=== PATIENT | female | born 1985 | race Caucasian/White ===

== ENCOUNTER 2021-02-24 03:41 | Emergency (ER) | payer MEDICARE, MEDICAID, SELFPAY ==
--- NOTE | 2021-02-24 04:11 | PC.NURSE ---
pt no longer in the waiting room. lwt
== END 2021-02-24 04:39 | disposition left against medical advice (07) ==
PROVIDERS: Emergency Provider Emergency Medicine
DX: M79.89 Other specified soft tissue disorders (principal)

== ENCOUNTER 2021-11-01 11:35 | Outpatient (REF) | payer MEDICARE, MEDICAID, SELFPAY ==
[2021-11-02 02:04] LABS: CT PCR NOT DETECTED (Not Detect.); NG PCR NOT DETECTED (Not Detect.)
[2021-11-02 09:10] LABS: BV Int Neg Control Negative (Negative); BV Int Pos Control Positive (Positive)
[2021-11-04 15:11] LABS: HPV mRNA E6/E7 rflx Not Detected (Not Detected)
== END 2021-11-01 11:36 | disposition home or self-care (01) ==
LOC: HO.LNP 11:35
PROVIDERS: Visit Provider Advanced Practice Midwife
DX: Z01.419 Encounter for gynecological examination (general) (routine) without abnormal findings (principal); Z11.51 Encounter for screening for human papillomavirus (HPV); Z20.2 Contact with and (suspected) exposure to infections with a predominantly sexual mode of transmission
CPT/HCPCS: 87480; 87491; 87510; 87591; 87624; 87660; 88142

== ENCOUNTER → 2022-01-15 09:25 | Outpatient (BNVA) | payer MEDICARE, MEDICAID, SELFPAY | PROVIDERS: Visit Provider Advanced Practice Midwife | DX: Z30.46 Encounter for surveillance of implantable subdermal contraceptive (principal) | CPT/HCPCS: 11982; 99212 ==

== ENCOUNTER 2022-05-02 09:19 | Emergency (ER) | payer MEDICARE, MEDICAID, SELFPAY ==
--- NOTE | ~2022-05-02 | US_ITS ---
EXAMINATION: US ABDOMEN LIMITED CLINICAL INFORMATION: Abdominal pain. COMPARISON: None TECHNIQUE: Real-time imaging of the right upper quadrant abdominal viscera. Color Doppler exam was used FINDINGS: PANCREAS: The head and body and portions of the tail the pancreas are visualized and are normal. LIVER: Normal. The liver is normal in size. The liver contour is normal. Parenchymal echogenicity is normal. No focal hepatic lesion. There is no intrahepatic biliary duct dilatation seen. GALLBLADDER: Normal. The gallbladder is physiologically distended without evidence of stones, sludge, polyps, wall thickening or pericholecystic fluid. COMMON BILE DUCT: Normal in caliber measuring 0.2 cm in diameter. RIGHT KIDNEY: Normal. No hydronephrosis. No renal calculi or focal parenchymal lesions. The kidney measures 9.6 cm in maximum dimension. FREE FLUID: None. US/US abdomen limited IMPRESSION: Normal ultrasound right upper quadrant.
[2022-05-02 09:31] VITALS: BP 125/75; PULSE 57; RESP 18; TEMP 36.7; O2SAT 98; BMI 30.2
[2022-05-02 09:56] LABS: MANUAL DIFF FLAG NO
[2022-05-02 10:00] LABS: Appearance Urine Cloudy; Basophils Absolute Auto 0.1 X10*3/uL (0.0-0.2); Color Urine Yellow; Eosinophils Absolute Auto 0.3 X10*3/uL (0.0-0.4); Eosinophils Percent Auto 5.1 % (0-4); Glucose Urine UA Negative (Negative); Imm Gran Abs Auto 0.01 X10*3/uL (0.00-0.03); Imm Gran Pct Auto 0.2 % (0.0-0.4); Leukocyte Esterase Urine Trace (Negative); Lymphocytes Absolute Auto 2.3 X10*3/uL (1.2-4.9); Lymphocytes Percent Auto 38.6 % (20-40); Mean Corpuscular HGB Conc 32.4 g/dl (31.0-35.0); Mean Corpuscular Volume 89.4 fL (80.0-98.0); Mean Platelet Volume 9.1 fL (9.4-12.3); Monocytes Absolute Auto 0.5 X10*3/uL (0.1-1.2); Monocytes Percent Auto 7.6 % (2-11); Neutrophils Absolute Auto 2.9 x10*3/uL (2.0-8.3); Neutrophils Percent Auto 47.5 % (45-73); Nitrite Urine Negative (Negative); Platelet Count 394 X10*3/uL (160-400); Red Blood Count 4.14 X10*6/uL (4.20-5.50); Red Cell Distribution Width 13.6 % (11.0-16.0); Specific Gravity - Urine >= 1.030 (1.005-1.025); UMIC TRIGGER UACC YES; Urine Blood Trace (Negative); Urine Ketones Negative (Negative); Urine Protein Trace mg/dL (Neg-Trace); White Blood Count 6.1 X10*3/uL (4.8-10.8)
[2022-05-02 10:01] LABS: UPreg QC Valid YES; Urine Pregnancy NEGATIVE (NEGATIVE)
[2022-05-02 10:02] LABS: Bacteria Urine 4+ (None Seen); Hyaline Casts Urine 0-2 /LPF (0-2); Squamous Epithelial Cell Urine >20 /HPF (0-2); UACC Culture Trigger YES
[2022-05-02 10:14] LABS: Anion Gap 10 (12-20); Blood Urea Nitrogen 14 mg/dL (9-16); Calcium 8.9 mg/dL (8.4-10.2); Carbon Dioxide 29 mmol/L (22-29); Chloride 105 mmol/L (96-108); Creatinine Clr Calc Pharmacy 107.4; Estimated Glomerular Filt Rate > 60; Glucose Random 107 mg/dL (60-115); Potassium 4.3 mmol/L (3.3-5.1); Sodium 140 mmol/L (135-145)
[2022-05-02 11:10] VITALS: BP 126/77; PULSE 66; RESP 16; TEMP 36.7; O2SAT 99
--- NOTE | 2022-05-02 12:29 | ECG_ITS ---
Test Reason : CP Blood Pressure : / mmHG Vent. Rate : 055 BPM Atrial Rate : 055 BPM P-R Int : 124 ms QRS Dur : 090 ms QT Int : 448 ms P-R-T Axes : 079 070 046 degrees QTc Int : 428 ms Sinus bradycardia Otherwise normal ECG No previous ECGs available Referred By: Jenny Gonzalez Electronically Signed By:TONY EATON
--- NOTE | 2022-05-02 12:31 | ED_ITS ---
HPI - Abdominal Pain General Chief Complaint: Abdominal Pain Stated Complaint: Upper abd pain Time Seen by Provider: 05/02/22 11:02 History of Present Illness HPI narrative: Patient is a 36-year-old female presents today with having abdominal pain. The abdominal pain is epigastric in nature. Ongoing for about 2 days. No fever no chills. No shortness of breath. No diaphoresis. No bloody stool. No dysuria. No flank pain. Patient from home. No coughing or congestion or upper r espiratory symptoms. Patient has no history of diabetes, hypertension, high cholesterol, smoking, mi. No vaginal discharge. Menstruation has been normal in timing and duration. Pain is not associated with change in position. Not associated with food. Not associated with chest pain. No history of abdominal surgery Related Data Home Medications Medication Instructions Recorded Confirmed etonogestrel 68 mg subdermal subdermal 11/01/21 01/15/22 implant (Nexplanon) levothyroxine 50 mcg tablet mcg PO DAILY 11/01/21 01/15/22 Previous Rx's Medication Instructions Recorded pantoprazole 40 mg tablet,delayed 40 mg PO DAILY #14 tabs 05/02/22 release (Protonix) Allergies Allergy/AdvReac Type Severity Reaction Status Date / Time shellfish derived Allergy Intermediate ANAPHYLAXIS Verified 01/15/22 09:56 [SHELLFISH DERIVED] Sulfa (Sulfonamide Allergy Unknown HIVES Verified 01/15/22 09:56 Antibiotics) [SULFA (SULFONAMIDE ANTIBIOTICS)] Review of Systems Review of Systems Positive epigastric pain Yes all other systems are reviewed and are negative PMFSH Past Medical History Attestation statement: The following information was validated with the patient. Medical History Hypothyroid Well woman exam with routine gynecological exam Surgical History Hx of appendectomy Family History Family History Paternal Grandmother Cancer Social History Social History Alcohol intake: current Patient Tobacco Use Status: Never used Tobacco Smoked in Last 30 Days: No Use of substances other than those prescribed or required for medical reasons: No Any prior treatment program specific to substance use: No Advance Directives: No Advance Directives Information Provided: Yes Patient : No Sexual orientation: Straight/Heterosexual Gender identity: Female Physical Exam ED Vital Signs: Vital Signs - 24 hr 05/02/22 09:31 05/02/22 11:10 05/02/22 14:40 Temperature 98.0 F 98.1 F 98.1 F Pulse Rate 57 66 62 Respiratory Rate 18 16 14 Blood Pressure 125/75 126/77 139/92 H Pulse Oximetry 98 99 99 Oxygen Delivery Method Room Air Room Air Room Air BMI result Body Mass Index 30.2 Appearance: Alert. Oriented X3. No acute distress. Eyes: Pupils equal, round and reactive to light. ENT: Pharynx normal. Neck: Normal inspection. Neck supple. No lymph nodes noted. No crepitus CVS: Normal heart rate and rhythm. Pulses normal. Normal S1 and S2 Respiratory: No respiratory distress. Breath sounds normal. No Wheezing. No rales Abdomen: Positive epigastric pain. No rebound or guarding Skin: Skin warm and dry. Normal skin color. Normal skin turgor. Extremities: No lower extremity edema. Neurovascular intact to all extremities. No Lacerations. No Rash Neuro: Oriented X 3. No motor deficit. No sensory deficit. Moving all exte rmities. No slurred speech Medical Decision Making Medical Decision Making [facility] Narrative: Positive epigastric pain. Patient biliary enzymes were normal. Ultrasound showed no evidence of biliary disease. Patient is in stable condition. Lipase is normal. There is no evidence for pancreatitis. test is negative. Not related issue. Patient's urine showed no signs of infection. She is in stable condition. Will start patient on PPI and discharge patient. Differential Diagnosis Gastritis, pancreatitis, biliary issue, obstruction Lab Data [facility] Lab Attestation statement: I reviewed the patient's lab results. 05/02/22 09:42 05/02/22 09:42 Labs: Lab Results 05/02/22 05/02/22 05/02/22 Range/Units 09:42 09:42 09:42 WBC 6.1 (4.8-10.8) X10*3/uL RBC 4.14 L (4.20-5.50) X10*6/uL Hgb 12.0 (12.0-16.0) g/dl Hct 37.0 (37.0-47.0) % MCV 89.4 (80.0-98.0) fL MCH 29.0 (27.0-33.0) pg MCHC 32.4 (31.0-35.0) g/dl RDW 13.6 (11.0-16.0) % Plt Count 394 (160-400) X10*3/uL MPV 9.1 L (9.4-12.3) fL Immature Gran % (Auto) 0.2 (0.0-0.4) % Neut % (Auto) 47.5 (45-73) % Lymph % (Auto) 38.6 (20-40) % [place] % (Auto) 7.6 (2-11) % Eos % (Auto) 5.1 H (0-4) % Baso % (Auto) 1.0 (0-2) % Lymph # (Auto) 2.3 (1.2-4.9) X10*3/uL [place] # (Auto) 0.5 (0.1-1.2) X10*3/uL Eos # (Auto) 0.3 (0.0-0.4) X10*3/uL Baso # (Auto) 0.1 (0.0-0.2) X10*3/uL Abs Immat Gran (auto) 0.01 (0.00-0.03) X10*3/uL Absolute Neuts (auto) 2.9 (2.0-8.3) x10*3/uL Absolute Nucleated RBC 0.000 (0.0-0.012) X10*3/uL Nucleated RBC % (auto) 0.0 (0.0-0.2) /100WBC Sodium 140 (135-145) mmol/L Potassium 4.3 (3.3-5.1) mmol/L Chloride 105 (96-108) mmol/L Carbon Dioxide 29 (22-29) mmol/L Anion Gap 10 L (12-20) BUN 14 (9-16) mg/dL Creatinine 0.74 (0.5-1.4) mg/dL Estim Creat Clear Calc 107.4 Estimated GFR > 60 Random Glucose 107 (60-115) mg/dL Calcium 8.9 (8.4-10.2) mg/dL Total Bilirubin 0.5 (0.0-1.0) mg/dL Direct Bilirubin 0.2 (0.0-0.5) mg/dL AST 12 (5-31) U/L ALT 9 (0-31) U/L Alkaline Phosphatase 53 (39-117) U/L Total Protein 6.8 (6.5-8.0) g/dL Albumin 4.2 (3.5-5.0) g/dL Lipase 18 (8-78) U/L Urine Color Yellow Urine Appearance Cloudy Urine pH 7.0 (5.0-9.0) Ur Specific [place] >= 1.030 H (1.005-1.025) Urine Protein Trace (Neg-Trace) mg/dL Urine Glucose (UA) Negative (Negative) mg/dL Urine Ketones Negative (Negative) mg/dL Urine Blood Trace H (Negative) Urine Nitrite Negative (Negative) Ur Leukocyte Esterase Trace H (Negative) Urine RBC 6-10 H (0-2) /HPF Urine WBC 6-10 H (0-5) /HPF Ur Squamous Epith Cells >20 (0-2) /HPF Urine Bacteria 4+ (None Seen) Hyaline Casts 0-2 (0-2) /LPF Urine Test (NEGATIVE) 05/02/22 Range/Units 09:42 WBC (4.8-10.8) X10*3/uL RBC (4.20-5.50) X10*6/uL Hgb (12.0-16.0) g/dl Hct (37.0-47.0) % MCV (80.0-98.0) fL MCH (27.0-33.0) pg MCHC (31.0-35.0) g/dl RDW (11.0-16.0) % Plt Count (160-400) X10*3/uL MPV (9.4-12.3) fL Immature Gran % (Auto) (0.0-0.4) % Neut % (Auto) (45-73) % Lymph % (Auto) (20-40) % [place] % (Auto) (2-11) % Eos % (Auto) (0-4) % Baso % (Auto) (0-2) % Lymph # (Auto) (1.2-4.9) X10*3/uL [place] # (Auto) (0.1-1.2) X10*3/uL Eos # (Auto) (0.0-0.4) X10*3/uL Baso # (Auto) (0.0-0.2) X10*3/uL Abs Immat Gran (auto) (0.00-0.03) X10*3/uL Absolute Neuts (auto) (2.0-8.3) x10*3/uL Absolute Nucleated RBC (0.0-0.012) X10*3/uL Nucleated RBC % (auto) (0.0-0.2) /100WBC Sodium (135-145) mmol/L Potassium (3.3-5.1) mmol/L Chloride (96-108) mmol/L Carbon Dioxide (22-29) mmol/L Anion Gap (12-20) BUN (9-16) mg/dL Creatinine (0.5-1.4) mg/dL Estim Creat Clear Calc Estimated GFR Random Glucose (60-115) mg/dL Calcium (8.4-10.2) mg/dL Total Bilirubin (0.0-1.0) mg/dL Direct Bilirubin (0.0-0.5) mg/dL AST (5-31) U/L ALT (0-31) U/L Alkaline Phosphatase (39-117) U/L Total Protein (6.5-8.0) g/dL Albumin (3.5-5.0) g/dL Lipase (8-78) U/L Urine Color Urine Appearance Urine pH (5.0-9.0) Ur Specific [place] (1.005-1.025) Urine Protein (Neg-Trace) mg/dL Urine Glucose (UA) (Negative) mg/dL Urine Ketones (Negative) mg/dL Urine Blood (Negative) Urine Nitrite (Negative) Ur Leukocyte Esterase (Negative) Urine RBC (0-2) /HPF Urine WBC (0-5) /HPF Ur Squamous Epith Cells (0-2) /HPF Urine Bacteria (None Seen) Hyaline Casts (0-2) /LPF Urine Test NEGATIVE (NEGATIVE) Medications Administered Discontinued Medications Generic Name Dose Route Start Last Admin Trade Name Freq PRN Reason Stop Dose Admin Al Hydroxide/Mg Hydroxide 30 ml 05/02/22 12:30 05/02/22 13:12 Magnesium Hydrox/Alum Hydrox 30 Ml Oral.Susp PO 05/02/22 12:31 30 ml ONCE ONE Administration Belladonna Alkaloids/Phenobarbital 10 ml 05/02/22 12:30 05/02/22 13:12 Phenobarb/Hyoscy/Atropine/Scop 10 Ml Elixir PO 05/02/22 12:31 10 ml ONCE ONE Administration Lidocaine HCl 15 ml 05/02/22 12:30 05/02/22 13:12 Lidocaine Hcl Viscous 2 % 15 Ml Solution MUCOUS MEM 05/02/22 12:31 15 ml ONCE ONE Administration Discharge Plan Discharge Clinical Impression: Gastritis Patient Disposition: Home, Self-Care Instructions: Gastritis (ED) Prescriptions: New pantoprazole [Protonix] 40 mg tablet,delayed release (DR/EC) 40 mg PO DAILY Qty: 14 0RF No Action levothyroxine 50 mcg tablet PO DAILY Nexplanon 68 mg implant subdermal Referrals: Physician,Unknown J [Primary Care Provider] -
[2022-05-02 12:32] LABS: Alanine Aminotransferase 9 U/L (0-31); Albumin Level 4.2 g/dL (3.5-5.0); Alkaline Phosphatase 53 U/L (39-117); Aspartate Amino Transferase 12 U/L (5-31); Bilirubin Direct 0.2 mg/dL (0.0-0.5); Bilirubin Total 0.5 mg/dL (0.0-1.0); Lipase 18 U/L (8-78); Total Protein 6.8 g/dL (6.5-8.0)
[2022-05-02] MEDS: Magnesium Hydrox/Alum Hydrox 30 ML ORAL.SUSP PO (13:12)
[2022-05-02] MEDS: Lidocaine HCl Viscous 2 % 15 ML SOLUTION MUCOUS MEM (13:12)
[2022-05-02] MEDS: PHENobarb/Hyoscy/Atropine/Scop 10 ML ELIXIR PO (13:12)
[2022-05-02 14:40] VITALS: BP 139/92; PULSE 62; RESP 14; TEMP 36.7; O2SAT 99
--- NOTE | 2022-05-02 15:32 | PC.NURSE ---
assumed care of pt at 1600, pt frustrated with wait on radiology report, feels hungry and dehydrated, per provider unable to give anything PO at this time, provider to go talk to pt.
--- NOTE | 2022-05-02 16:17 | MHC.EDTECH ---
this pct attempted to take vitals on patient, patient states they have been here for hours and is ready to leave and doesnt want any further treatments.
== END 2022-05-02 16:31 | disposition home or self-care (01) ==
PROVIDERS: Emergency Provider Emergency Medicine Emergency Medical Services
DX: K29.70 Gastritis, unspecified, without bleeding (principal); R10.13 Epigastric pain
CPT/HCPCS: 36415; 76705; 80048; 80076; 81001; 81003; 81025; 83690; 85025; 87086; 87147; 93005; 99284; 99285

== ENCOUNTER 2022-09-09 04:18 | Day surgery (SDC) | payer OTHER, SELFPAY ==
[2022-09-09] VITALS (9 sets, daily range): BP systolic 116–139; BP diastolic 66–91; PULSE 54–96; RESP 14–18; TEMP 36.1–37.3; O2SAT 97–100; BMI 31.8
--- NOTE | ~2022-09-09 | US_ITS ---
EXAMINATION: US PELVIC AND TRANSVAGINAL CLINICAL INFORMATION: Vaginal bleeding following misoprostol. COMPARISON: None available. TECHNIQUE: Ultrasound of the pelvis is performed using both transabdominal and transvaginal transducers along with Doppler. Transvaginal imaging is performed due to inadequate visualization transabdominally. FINDINGS: Uterus: The uterus is anteverted and measures 8.6 x 4.7 x 5.4 cm. The endometrium is heterogeneous measuring 2.7 cm in width with a small amount of fluid and increased Doppler detectable vascular flow. Findings could indicate retained product of conception. The uterus is smooth in contour and has normal myometrial echogenicity. No visible fibroid. Adnexa: Both ovaries are visualized. There is normal color flow to the adnexa. There is no ovarian torsion. Trace right adnexal free fluid. Complex right adnexal cyst measuring 4.2 x 3.6 x 3.4 cm with lacy internal echoes, consistent with a hemorrhagic cyst. Right ovary measures 4.6 x 3.9 x 3.9 cm. Right ovarian volume of 36.6 mL. Left ovary measures 2.4 x 1.8 x 1.6 cm. Left ovarian volume of 3.6 mL. Mild prominence of the vascular structures adjacent to the left adnexa which could indicate vascular congestion. US/US pelvic and transvaginal IMPRESSION: 1. Heterogeneous, thickened endometrium with increased Doppler detectable vascular flow. Findings could indicate retained product of conception. 2. Complex right ovarian cyst measuring 4.2 cm with lacy internal echoes, consistent with a hemorrhagic cyst. 3. Trace right adnexal free fluid. 4. Mild prominence of the vascular structures adjacent to the left adnexa which could indicate vascular congestion.
[2022-09-09 05:20] LABS: Basophils Absolute Auto 0.1 X10*3/uL (0.0-0.2); Basophils Percent Auto 0.6 % (0-2); Eosinophils Absolute Auto 0.1 X10*3/uL (0.0-0.4); Eosinophils Percent Auto 1.3 % (0-4); Hemoglobin 12.7 g/dl (12.0-16.0); Imm Gran Abs Auto 0.02 X10*3/uL (0.00-0.03); Imm Gran Pct Auto 0.2 % (0.0-0.4); Lymphocytes Absolute Auto 2.4 X10*3/uL (1.2-4.9); Lymphocytes Percent Auto 26.6 % (20-40); MANUAL DIFF FLAG NO; Mean Corpuscular HGB Conc 31.8 g/dl (31.0-35.0); Mean Corpuscular Hemoglobin 28.4 pg (27.0-33.0); Mean Corpuscular Volume 89.5 fL (80.0-98.0); Mean Platelet Volume 8.5 fL (9.4-12.3); Monocytes Absolute Auto 0.8 X10*3/uL (0.1-1.2); Monocytes Percent Auto 8.4 % (2-11); Neutrophils Absolute Auto 5.6 x10*3/uL (2.0-8.3); Neutrophils Percent Auto 62.9 % (45-73); Platelet Count 326 X10*3/uL (160-400); Red Blood Count 4.47 X10*6/uL (4.20-5.50); Red Cell Distribution Width 14.1 % (11.0-16.0); White Blood Count 8.9 X10*3/uL (4.8-10.8)
[2022-09-09 05:27] LABS: Prothrombin Time 11.3 SEC (10.0-13.1)
--- NOTE | 2022-09-09 05:32 | ED.FEMALEGU ---
HPI - Female Genitourinary General Chief complaint: Abdominal Pain Stated complaint: abd pain misscarriage month ago Time Seen by Provider: 09/09/22 05:22 Source: patient Mode of arrival: ambulatory Limitations: no limitations History of Present Illness HPI Narrative: Patient comes to the emergency room complaining of heavy vaginal bleeding. Patient states that she is a A2. On 08/01/2022, patient had spontaneous miscarriage. Patient was given misoprostol. Patient states that she did have some vaginal bleeding. Went to see her OB Gyne, patient still had remaining products of conception, patient was given a 2nd dose of misoprostol. Patient states that this 2nd time she did not bleed as much, this occurred approximately a week ago. However, she did not bleed much for 5 days and then 2 days ago patient started bleeding heavily. Patient states that she is using a pad every 2 hours for heavy vaginal bleeding. Patient denies any significant abdominal pain, occasional abdominal cramping. No fever chills, no UTI symptoms. Related Data Home Medications Medication Instructions Recorded Confirmed etonogestrel 68 mg subdermal subdermal 11/01/21 01/15/22 implant (Nexplanon) levothyroxine 50 mcg tablet mcg PO DAILY 11/01/21 01/15/22 Previous Rx's Medication Instructions Recorded pantoprazole 40 mg tablet,delayed 40 mg PO DAILY #14 tabs 05/02/22 release (Protonix) Allergies Allergy/AdvReac Type Severity Reaction Status Date / Time shellfish derived Allergy Intermediate ANAPHYLAXIS Verified 09/09/22 04:29 [SHELLFISH DERIVED] Sulfa (Sulfonamide Allergy Unknown HIVES Verified 09/09/22 04:29 Antibiotics) [SULFA (SULFONAMIDE ANTIBIOTICS)] Review of Systems Review of Systems: Constitutional : No Weight loss, No Fever, No Chills, No Night Sweats, No Fatigue, No Malaise ENT/Mouth : No Hearing loss, No Ear Pain, No Nasal Congestion, No Sinus Pain, No Hoarseness, No sore throat, No Rhinorrhea, No Swallowing Difficulty Eyes: No Eye Pain, No Swelling, No Redness, No Foreign Body, No Discharge, No Vision Changes Cardiovascular : No Chest Pain, No SOB, No Dyspnea on Exertion, No Orthopnea, No Edema, No Palpitations Respiratory : No Cough, No Sputum, No Wheezing, No Smoke Exposure, No Dyspnea Gastrointestinal : No Nausea, No Vomiting, No Diarrhea, No Constipation, No abdominal Pain, No Hematochezia, No Melena Genitourinary : Complaining of heavy vaginal bleeding for the last 2 days,, No Dysuria, No Urinary Frequency, No Hematuria, No Urinary Incontinence, No Urgency, No Flank Pain, No Urinary Flow Changes, No Hesitancy Musculoskeletal : No joint pain, No Myalgias, No Joint Swelling Skin : No Skin Lesions, No rash Neuro : No Weakness, No Numbness, No Paresthesias, No Loss of Consciousness, No Dizziness, No Headache Psych : No Anxiety/Panic, No Depression, No SI/HI/AH/VH, No Social Issues, Heme/Lymph: No Bruising, No Bleeding,No Lymphadenopathy Endocrine : No Polyuria, No Polydipsia, No Temperature Intolerance [facility] Past Medical History Medical History Hypothyroid Well woman exam with routine gynecological exam Surgical History Hx of appendectomy Family History Family History Paternal Grandmother Cancer Social History Social History Alcohol intake: current Patient Tobacco Use Status: Never used Tobacco Advance Directives: No Advance Directives Information Provided: Yes Sexual orientation: Straight/Heterosexual Gender identity: Female Physical Exam Vital Signs: Vital Signs: Last Vital Signs Temp 98.0 F 09/09/22 05:07 Pulse 61 09/09/22 05:07 Resp 18 09/09/22 05:07 BP 125/67 09/09/22 05:07 Pulse Ox 99 09/09/22 05:07 O2 Del Method Room Air 09/09/22 05:07 BMI result Body Mass Index 31.8 Const: Other: Appearance: Alert. Oriented X3. No acute distress. Eyes: Pupils equal, round and reactive to light. ENT: Pharynx normal. Neck: Normal inspection. Neck supple. No lymph nodes noted. No crepitus CVS: Normal heart rate and rhythm. Pulses normal. Normal S1 and S2 Respiratory: No respiratory distress. Breath sounds normal. No Wheezing. No rales Abdomen: Soft and nontender. No rigidity. No distention. : There is moderate amount of blood in the cervical canal, seems that there is a small amount of membrane like material protruding through the cervical os Skin: Skin warm and dry. Normal skin color. Normal skin turgor. Extremities: No lower extremity edema. No Lacerations. No Rash Neuro: Oriented X 3. No motor deficit. No sensory deficit. Moving all extremities. No slurred speech. CN 2 through 12 grossly intact Psych: calm, cooperative, normal affect Course Course Course Narrative: -all of patient's labs pending -transvaginal ultrasound pending Medical Decision Making Medical Decision Making MDM Narrative: -patient has heavy vaginal bleeding. Admission has been considered. All of patient's labs pending -my interpretation of labs: Hematology stable, patient is not anemic. Patient's hCG is still positive at 104, we do not have any previous labs to compare to. However, after a month , the hCG should be negative. Patient will likely need a D&C. Transvaginal ultrasound pending -patient is AB-positive, RhoGAM not indicated -serology for GC chlamydia, Trichomonas and bacterial vaginosis have been obtained from the cervix. Results will be pending -sign out given to Dr. Hammonds Differential Diagnosis Differential Diagnoses: The differential diagnosis associated with the presentation includes (Menorrhagia, menometrorrhagia, dysfunctional uterine bleeding, retained products of conception) Admission/Observation Consideration of admission/observation: Escalation of care including admission/observation considered Lab Data [facility] Lab Attestation statement: I reviewed the patient's lab results. 09/09/22 05:13 09/09/22 05:13 Labs: Lab Results 09/09/22 09/09/22 09/09/22 Range/Units 05:13 05:13 05:13 WBC 8.9 (4.8-10.8) X10*3/uL RBC 4.47 (4.20-5.50) X10*6/uL Hgb 12.7 (12.0-16.0) g/dl Hct 40.0 (37.0-47.0) % MCV 89.5 (80.0-98.0) fL MCH 28.4 (27.0-33.0) pg MCHC 31.8 (31.0-35.0) g/dl RDW 14.1 (11.0-16.0) % Plt Count 326 (160-400) X10*3/uL MPV 8.5 L (9.4-12.3) fL Immature Gran % (Auto) 0.2 (0.0-0.4) % Neut % (Auto) 62.9 (45-73) % Lymph % (Auto) 26.6 (20-40) % [place] % (Auto) 8.4 (2-11) % Eos % (Auto) 1.3 (0-4) % Baso % (Auto) 0.6 (0-2) % Lymph # (Auto) 2.4 (1.2-4.9) X10*3/uL [place] # (Auto) 0.8 (0.1-1.2) X10*3/uL Eos # (Auto) 0.1 (0.0-0.4) X10*3/uL Baso # (Auto) 0.1 (0.0-0.2) X10*3/uL Abs Immat Gran (auto) 0.02 (0.00-0.03) X10*3/uL Absolute Neuts (auto) 5.6 (2.0-8.3) x10*3/uL Absolute Nucleated RBC 0.000 (0.0-0.012) X10*3/uL Nucleated RBC % (auto) 0.0 (0.0-0.2) /100WBC PT 11.3 (10.0-13.1) SEC INR 1.0 (0.9-1.1) Sodium 139 (135-145) mmol/L Potassium 4.3 (3.3-5.1) mmol/L Chloride 107 (96-108) mmol/L Carbon Dioxide 25 (22-29) mmol/L Anion Gap 11 L (12-20) BUN 14 (9-16) mg/dL Creatinine 0.82 (0.5-1.4) mg/dL Estim Creat Clear Calc 99.4 Estimated GFR > 60 Random Glucose 97 (60-115) mg/dL Calcium 9.3 (8.4-10.2) mg/dL Total Bilirubin 0.2 (0.0-1.0) mg/dL AST 15 (5-31) U/L ALT 9 (0-31) U/L Alkaline Phosphatase 49 (39-117) U/L Total Protein 6.7 (6.5-8.0) g/dL Albumin 3.8 (3.5-5.0) g/dL Beta HCG, Quant mIU/mL Urine Color Urine Appearance Urine pH (5.0-9.0) Ur Specific [place] (1.005-1.025) Urine Protein (Neg-Trace) mg/dL Urine Glucose (UA) (Negative) mg/dL Urine Ketones (Negative) mg/dL Urine Blood (Negative) Urine Nitrite (Negative) Ur Leukocyte Esterase (Negative) Urine RBC (0-2) /HPF Urine WBC (0-5) /HPF Ur Squamous Epith Cells (0-2) /HPF Urine Bacteria (None Seen) Hyaline Casts (0-2) /LPF Urine Test (NEGATIVE) Blood Type Antibody Screen 09/09/22 09/09/22 09/09/22 Range/Units 05:13 05:22 05:22 WBC (4.8-10.8) X10*3/uL RBC (4.20-5.50) X10*6/uL Hgb (12.0-16.0) g/dl Hct (37.0-47.0) % MCV (80.0-98.0) fL MCH (27.0-33.0) pg MCHC (31.0-35.0) g/dl RDW (11.0-16.0) % Plt Count (160-400) X10*3/uL MPV (9.4-12.3) fL Immature Gran % (Auto) (0.0-0.4) % Neut % (Auto) (45-73) % Lymph % (Auto) (20-40) % [place] % (Auto) (2-11) % Eos % (Auto) (0-4) % Baso % (Auto) (0-2) % Lymph # (Auto) (1.2-4.9) X10*3/uL [place] # (Auto) (0.1-1.2) X10*3/uL Eos # (Auto) (0.0-0.4) X10*3/uL Baso # (Auto) (0.0-0.2) X10*3/uL Abs Immat Gran (auto) (0.00-0.03) X10*3/uL Absolute Neuts (auto) (2.0-8.3) x10*3/uL Absolute Nucleated RBC (0.0-0.012) X10*3/uL Nucleated RBC % (auto) (0.0-0.2) /100WBC PT (10.0-13.1) SEC INR (0.9-1.1) Sodium (135-145) mmol/L Potassium (3.3-5.1) mmol/L Chloride (96-108) mmol/L Carbon Dioxide (22-29) mmol/L Anion Gap (12-20) BUN (9-16) mg/dL Creatinine (0.5-1.4) mg/dL Estim Creat Clear Calc Estimated GFR Random Glucose (60-115) mg/dL Calcium (8.4-10.2) mg/dL Total Bilirubin (0.0-1.0) mg/dL AST (5-31) U/L ALT (0-31) U/L Alkaline Phosphatase (39-117) U/L Total Protein (6.5-8.0) g/dL Albumin (3.5-5.0) g/dL Beta HCG, Quant mIU/mL Urine Color RED Urine Appearance Turbid Urine pH 5.5 (5.0-9.0) Ur Specific [place] >= 1.030 H (1.005-1.025) Urine Protein 100 (2+) H (Neg-Trace) mg/dL Urine Glucose (UA) Negative (Negative) mg/dL Urine Ketones Negative (Negative) mg/dL Urine Blood Large (3+) H (Negative) Urine Nitrite Negative (Negative) Ur Leukocyte Esterase Negative (Negative) Urine RBC >20 H (0-2) /HPF Urine WBC 0-5 (0-5) /HPF Ur Squamous Epith Cells 0-2 (0-2) /HPF Urine Bacteria 1+ (None Seen) Hyaline Casts 0-2 (0-2) /LPF Urine Test WEAKLY POSITIVE H (NEGATIVE) Blood Type AB Positive Antibody Screen NEGATIVE 09/09/22 Range/Units 05:38 WBC (4.8-10.8) X10*3/uL RBC (4.20-5.50) X10*6/uL Hgb (12.0-16.0) g/dl Hct (37.0-47.0) % MCV (80.0-98.0) fL MCH (27.0-33.0) pg MCHC (31.0-35.0) g/dl RDW (11.0-16.0) % Plt Count (160-400) X10*3/uL MPV (9.4-12.3) fL Immature Gran % (Auto) (0.0-0.4) % Neut % (Auto) (45-73) % Lymph % (Auto) (20-40) % [place] % (Auto) (2-11) % Eos % (Auto) (0-4) % Baso % (Auto) (0-2) % Lymph # (Auto) (1.2-4.9) X10*3/uL [place] # (Auto) (0.1-1.2) X10*3/uL Eos # (Auto) (0.0-0.4) X10*3/uL Baso # (Auto) (0.0-0.2) X10*3/uL Abs Immat Gran (auto) (0.00-0.03) X10*3/uL Absolute Neuts (auto) (2.0-8.3) x10*3/uL Absolute Nucleated RBC (0.0-0.012) X10*3/uL Nucleated RBC % (auto) (0.0-0.2) /100WBC PT (10.0-13.1) SEC INR (0.9-1.1) Sodium (135-145) mmol/L Potassium (3.3-5.1) mmol/L Chloride (96-108) mmol/L Carbon Dioxide (22-29) mmol/L Anion Gap (12-20) BUN (9-16) mg/dL Creatinine (0.5-1.4) mg/dL Estim Creat Clear Calc Estimated GFR Random Glucose (60-115) mg/dL Calcium (8.4-10.2) mg/dL Total Bilirubin (0.0-1.0) mg/dL AST (5-31) U/L ALT (0-31) U/L Alkaline Phosphatase (39-117) U/L Total Protein (6.5-8.0) g/dL Albumin (3.5-5.0) g/dL Beta HCG, Quant 104 mIU/mL Urine Color Urine Appearance Urine pH (5.0-9.0) Ur Specific [place] (1.005-1.025) Urine Protein (Neg-Trace) mg/dL Urine Glucose (UA) (Negative) mg/dL Urine Ketones (Negative) mg/dL Urine Blood (Negative) Urine Nitrite (Negative) Ur Leukocyte Esterase (Negative) Urine RBC (0-2) /HPF Urine WBC (0-5) /HPF Ur Squamous Epith Cells (0-2) /HPF Urine Bacteria (None Seen) Hyaline Casts (0-2) /LPF Urine Test (NEGATIVE) Blood Type Antibody Screen Critical Care Time Critical Care Time Critical Care Time: Yes Total Critical Care Time: 60 Attestation: I have personally provided critical care time. Time includes review of lab data, radiology results, discussion with consultants, and monitoring for potential decompensation. Intervention performed as documented. Discharge Plan Discharge Clinical Impression: Retained products of conception after miscarriage Patient Disposition: Still a Patient Prescriptions: No Action pantoprazole [Protonix] 40 mg tablet,delayed release (DR/EC) 40 mg PO DAILY Qty: 14 0RF levothyroxine 50 mcg tablet PO DAILY Nexplanon 68 mg implant subdermal
[2022-09-09 05:35] LABS: UPreg QC Valid YES; Urine Pregnancy WEAKLY POSITIVE (NEGATIVE)
[2022-09-09 05:37] LABS: Alanine Aminotransferase 9 U/L (0-31); Albumin Level 3.8 g/dL (3.5-5.0); Alkaline Phosphatase 49 U/L (39-117); Anion Gap 11 (12-20); Aspartate Amino Transferase 15 U/L (5-31); Bilirubin Total 0.2 mg/dL (0.0-1.0); Blood Urea Nitrogen 14 mg/dL (9-16); Calcium 9.3 mg/dL (8.4-10.2); Carbon Dioxide 25 mmol/L (22-29); Chloride 107 mmol/L (96-108); Creatinine Clr Calc Pharmacy 99.4; Estimated Glomerular Filt Rate > 60; Glucose Random 97 mg/dL (60-115); Potassium 4.3 mmol/L (3.3-5.1); Sodium 139 mmol/L (135-145); Total Protein 6.7 g/dL (6.5-8.0)
[2022-09-09 05:41] LABS: Appearance Urine Turbid; Color Urine RED; Glucose Urine UA Negative (Negative); Leukocyte Esterase Urine Negative (Negative); Nitrite Urine Negative (Negative); PH 5.5 (5.0-9.0); Specific Gravity - Urine >= 1.030 (1.005-1.025); UMIC TRIGGER UACC YES; Urine Blood Large (3+) (Negative); Urine Ketones Negative (Negative); Urine Protein 100 (2+) mg/dL (Neg-Trace)
[2022-09-09 05:42] LABS: RBC Urine >20 /HPF (0-2); Squamous Epithelial Cell Urine 0-2 /HPF (0-2); WBC Urine 0-5 /HPF (0-5)
[2022-09-09 05:43] LABS: Bacteria Urine 1+ (None Seen); Hyaline Casts Urine 0-2 /LPF (0-2)
[2022-09-09 06:14] LABS: HCG Quantitative 104 mIU/mL
--- NOTE | 2022-09-09 07:21 | PC.NURSE ---
pt a&ox3, vss, pt states that she is having 0/10 pain after medication administration, pt states that she is feeling okay and a sense of relief after pelvic exam showing no foreign pieces upon examination, pt stating jut waiting for ultrasound to come and get her, call auguste placed within reach, will continue to monitor.
--- NOTE | 2022-09-09 08:49 | PC.NURSE ---
pt stating that she needed to leave and go home because her child was at home alone, results from imaging came back showing that there was still products of conception present so a d&c is needed. dr. bailey came into the room to discuss results with pt/asked her not to leave - pt decided to stay. dr. bailey contacting obgyn doctor to discuss further plan of action.
--- NOTE | 2022-09-09 08:57 | PM.GYNCN ---
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 The patient had what seems like a missed on 08/01/2022 and was given misoprostol for termination of this was followed by persistent vaginal bleeding afterwards so she was diagnosed with retained products of conception, and was given a 2nd dose of misoprostol. But 2 days ago, the patient started having heavy bleeding using a pad every 2 hours , no other significant complaints, no abdominal pain, no fever chills, no UTI symptoms. 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 - Review of Systems Review of Systems ROS Unobtainable: All systems reviewed & are unremarkable except as noted in HPI and below Cardiovascular: Denies Palpatations, Loss of consciousness or Chest pain Respiratory: Denies Cough, Wheezing or Shortness of breath Musculoskeletal: Denies Low back pain Gastrointestinal: Denies Heartburn, Constipation, Diarrhea, Nausea or Vomiting Genitourinary: Denies Pain with urination, Burning with urination or Urinary frequency Neurological: Denies Migranes Psychological: Denies Depression OB PMFSH Past Medical History Medical History Hypothyroid Well woman exam with routine gynecological exam Family History Family History Paternal Grandmother Cancer Surgical History Surgical History Hx of appendectomy Social History Social History Alcohol intake: current Patient Tobacco Use Status: Never used Tobacco Advance Directives: No Advance Directives Information Provided: Yes Sexual orientation: Straight/Heterosexual Gender identity: Female Meds Allergies Allergy/AdvReac Type Severity Reaction Status Date / Time shellfish derived Allergy Intermediate ANAPHYLAXIS Verified 09/09/22 04:29 [SHELLFISH DERIVED] Sulfa (Sulfonamide Allergy Unknown HIVES Verified 09/09/22 04:29 Antibiotics) [SULFA (SULFONAMIDE ANTIBIOTICS)] Home Medications Medication Instructions Recorded Confirmed Last Taken Type levothyroxine 50 mcg tablet 50 mcg PO MOTUWETHFRSA@59911/01/21 09/09/22 09/08/22 History levothyroxine 50 mcg tablet 75 mcg PO AMBROSE@59909/09/22 09/09/22 09/02/22 History 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 Physical Exam Vitals Vital signs: Temp Pulse Resp BP Pulse Ox O2 Del Method 98.3 F 72 14 127/66 99 Room Air 09/09/22 07:20 09/09/22 07:20 09/09/22 07:20 09/09/22 07:20 09/09/22 07:20 09/09/22 07:20 BMI result Body Mass Index 31.8 Constitutional General Appearance: Healthy appearing, Well-nourished and Well-developed Psychiatric Mood and Affect: active and alert, normal mood and normal affect Skin Appearance: No rashes and No lesions Lungs Respiratory Effort: No intercostal retractions Auscultation: Clear to auscultation Cardiovascular Auscultation: RRR Abdomen Auscultation/Inspection/Palpation: Normal bowel sounds, Soft, Non-distended and No tenderness Female Genitalia (Pelvic) Bladder/Urethra: Normal meatus Vulva: No lesions Vagina: Nontender Cervix: No discharge and No cervical motion tenderness Uterus: Normal size Adnexa/Parametria: Adnexal Tenderness: None, Adnexal Mass: None and Parametrial Tenderness: None 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 - Results Labs 09/09/22 05:13 09/09/22 05:13 Labs: Short CBC 09/09/22 Range/Units 05:13 WBC 8.9 (4.8-10.8) X10*3/uL Hgb 12.7 (12.0-16.0) g/dl Hct 40.0 (37.0-47.0) % Plt Count 326 (160-400) X10*3/uL BMP 09/09/22 05:13 Sodium 139 Potassium 4.3 Chloride 107 Carbon Dioxide 25 BUN 14 Creatinine 0.82 Calcium 9.3 Liver Function 09/09/22 Range/Units 05:13 Total Bilirubin 0.2 (0.0-1.0) mg/dL AST 15 (5-31) U/L ALT 9 (0-31) U/L Alkaline Phosphatase 49 (39-117) U/L Albumin 3.8 (3.5-5.0) g/dL Urine 09/09/22 09/09/22 Range/Units 05:22 05:22 Urine Color RED Urine Appearance Turbid Urine pH 5.5 (5.0-9.0) Ur Specific [place] >= 1.030 H (1.005-1.025) Urine Protein 100 (2+) H (Neg-Trace) mg/dL Urine Glucose (UA) Negative (Negative) mg/dL Urine Test WEAKLY POSITIVE H (NEGATIVE) Antibody Screen Antibody Screen NEGATIVE 09/09/22 05:13 Imaging US - abdomen: Radiologist's impression: ITS Impressions Pelvic/Transvag US 09/09/22 07:55 IMPRESSION: 1. Heterogeneous, thickened endometrium with increased Doppler detectable vascular flow. Findings could indicate retained product of conception. 2. Complex right ovarian cyst measuring 4.2 cm with lacy internal echoes, consistent with a hemorrhagic cyst. 3. Trace right adnexal free fluid. 4. Mild prominence of the vascular structures adjacent to the left adnexa which could indicate vascular congestion. Assessment and Plan (1) Retained products of conception after miscarriage: Status: Acute Plan Discussed with the patient her clinical scenario and the result of the ultrasound post suggestive of possible retained products of conception, the options of the treatment discussed with the patient including medical treatment , suction D&C, all pros, cons, risks and benefits were discussed with the patient and the patient the decided to go ahead with Suction D&C. so a more detailed discussion about the procedure was carried on with the patient including the technique, risks including but not limited to : bleeding, infection, uterine perforation, injury to blood vessels, bowels, ureters, bladder, possible need for blood transfusion with all its risks ( HIV, Hep b or C, anaphylaxis reactions), possible need for laparoscopy, laparotomy, or hysterectomy, possible , thromboembolic events, possibility of a negative impact on future fertility because of scar tissue development inside the uterus; alternatives of this option were discussed with the patient including but not limited to, medical termination of or doing nothing. The patient decided to go ahead with Suction D&C and signed the consent. All questions answered, the patient verbalized understanding and agreed with the plan. Doxycycline 200 mg p.o. preop given to the patient. Ultrasound notified. Type and screen sent. Instructions given the patient to schedule a 2 week postoperative appointment. This note was generated with a voice recognition program. Some errors may have been overlooked during the review of this note. Sometimes these errors may affect the content or meaning of a given sentence. Time Spent With Patient Time: Total time managing care of this patient today ____ minutes.
[2022-09-09] MEDS: Doxycycline Monohydrate 100 MG CAPSULE 200 MG PO (09:25)
--- NOTE | 2022-09-09 09:25 | PC.NURSE ---
OB provider called and wanted doxycycline administered as a pre-op med, medication administered per provider order, pt resting comfortably with the lights dimmed stating 0/10 pain.
--- NOTE | 2022-09-09 10:23 | PC.NURSE ---
patient belongings form filled out and signed.
--- NOTE | 2022-09-09 10:28 | PC.NURSE ---
pt to OR at 1028 am transported by OR staff and anesthesiologist. 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
--- NOTE | 2022-09-09 10:34 | PHA.MEDREC ---
Pharmacy Consult ? Medication Reconciliation Pharmacy has completed the medication reconciliation. Spoke to patient to confirm meds.
--- NOTE | 2022-09-09 10:43 | HO.ANESPROP2 ---
[facility] Active Problems Active Problems: All Active Problems (Updated 09/09/22 @ 07:17 by Jacqueline Tejada MD) Retained products of conception after miscarriage (Acute) Encounter for Nexplanon removal (Acute) Etonogestrel implant for control (Acute) Screen for sexually transmitted diseases (Acute) Cervical cancer screening (Acute) Well woman exam with routine gynecological exam (Acute) Past Medical History Medical History Hypothyroid Well woman exam with routine gynecological exam Family History Family History Paternal Grandmother Cancer Family history of problems with anesthesia: No Surgical History Surgical History Hx of appendectomy History of Problems with Anesthesia: No Social History Social History Alcohol intake: current Patient Tobacco Use Status: Never used Tobacco Advance Directives: No Advance Directives Information Provided: Yes Sexual orientation: Straight/Heterosexual Gender identity: Female Meds Allergies Allergy/AdvReac Type Severity Reaction Status Date / Time shellfish derived Allergy Intermediate ANAPHYLAXIS Verified 09/09/22 04:29 [SHELLFISH DERIVED] Sulfa (Sulfonamide Allergy Unknown HIVES Verified 09/09/22 04:29 Antibiotics) [SULFA (SULFONAMIDE ANTIBIOTICS)] Home Medications Medication Instructions Recorded Confirmed Last Taken Type levothyroxine 50 mcg tablet 50 mcg PO MOTUWETHFRSA@59911/01/21 09/09/22 09/08/22 History levothyroxine 50 mcg tablet 75 mcg PO AMBROSE@59909/09/22 09/09/22 09/02/22 History Exam Exam Date and Time: September 09, 2022 1043 Height,Weight and Vital Signs: Height 5 ft 4 in Weight 83.915 kg Last Vital Signs Temp 97.6 F 09/09/22 09:27 Pulse 60 09/09/22 09:27 Resp 16 09/09/22 09:27 BP 131/86 09/09/22 09:27 Pulse Ox 98 09/09/22 09:27 O2 Del Method Room Air 09/09/22 09:27 Pertinent Lab Results Pertinent Lab Results: Laboratory Tests 09/09/22 09/09/22 09/09/22 05:13 05:13 05:13 WBC 8.9 RBC 4.47 Hgb 12.7 Hct 40.0 MCV 89.5 MCH 28.4 MCHC 31.8 RDW 14.1 Plt Count 326 MPV 8.5 L Immature Gran % (Auto) 0.2 Neut % (Auto) 62.9 Lymph % (Auto) 26.6 [place] % (Auto) 8.4 Eos % (Auto) 1.3 Baso % (Auto) 0.6 Lymph # (Auto) 2.4 [place] # (Auto) 0.8 Eos # (Auto) 0.1 Baso # (Auto) 0.1 Abs Immat Gran (auto) 0.02 Absolute Neuts (auto) 5.6 Absolute Nucleated RBC 0.000 Nucleated RBC % (auto) 0.0 PT 11.3 INR 1.0 Sodium 139 Potassium 4.3 Chloride 107 Carbon Dioxide 25 Anion Gap 11 L BUN 14 Creatinine 0.82 Estim Creat Clear Calc 99.4 Estimated GFR > 60 Random Glucose 97 Calcium 9.3 Total Bilirubin 0.2 AST 15 ALT 9 Alkaline Phosphatase 49 Total Protein 6.7 Albumin 3.8 Beta HCG, Quant Urine Color Urine Appearance Urine pH Ur Specific [place] Urine Protein Urine Glucose (UA) Urine Ketones Urine Blood Urine Nitrite Ur Leukocyte Esterase Urine RBC Urine WBC Ur Squamous Epith Cells Urine Bacteria Hyaline Casts Urine Test Blood Type Antibody Screen 09/09/22 09/09/22 09/09/22 05:13 05:22 05:22 WBC RBC Hgb Hct MCV MCH MCHC RDW Plt Count MPV Immature Gran % (Auto) Neut % (Auto) Lymph % (Auto) [place] % (Auto) Eos % (Auto) Baso % (Auto) Lymph # (Auto) [place] # (Auto) Eos # (Auto) Baso # (Auto) Abs Immat Gran (auto) Absolute Neuts (auto) Absolute Nucleated RBC Nucleated RBC % (auto) PT INR Sodium Potassium Chloride Carbon Dioxide Anion Gap BUN Creatinine Estim Creat Clear Calc Estimated GFR Random Glucose Calcium Total Bilirubin AST ALT Alkaline Phosphatase Total Protein Albumin Beta HCG, Quant Urine Color RED Urine Appearance Turbid Urine pH 5.5 Ur Specific [place] >= 1.030 H Urine Protein 100 (2+) H Urine Glucose (UA) Negative Urine Ketones Negative Urine Blood Large (3+) H Urine Nitrite Negative Ur Leukocyte Esterase Negative Urine RBC >20 H Urine WBC 0-5 Ur Squamous Epith Cells 0-2 Urine Bacteria 1+ Hyaline Casts 0-2 Urine Test WEAKLY POSITIVE H Blood Type AB Positive Antibody Screen NEGATIVE 09/09/22 05:38 WBC RBC Hgb Hct MCV MCH MCHC RDW Plt Count MPV Immature Gran % (Auto) Neut % (Auto) Lymph % (Auto) [place] % (Auto) Eos % (Auto) Baso % (Auto) Lymph # (Auto) [place] # (Auto) Eos # (Auto) Baso # (Auto) Abs Immat Gran (auto) Absolute Neuts (auto) Absolute Nucleated RBC Nucleated RBC % (auto) PT INR Sodium Potassium Chloride Carbon Dioxide Anion Gap BUN Creatinine Estim Creat Clear Calc Estimated GFR Random Glucose Calcium Total Bilirubin AST ALT Alkaline Phosphatase Total Protein Albumin Beta HCG, Quant 104 Urine Color Urine Appearance Urine pH Ur Specific [place] Urine Protein Urine Glucose (UA) Urine Ketones Urine Blood Urine Nitrite Ur Leukocyte Esterase Urine RBC Urine WBC Ur Squamous Epith Cells Urine Bacteria Hyaline Casts Urine Test Blood Type Antibody Screen Airway Mallampati Class: II TM Dist: >3cm Neck ROM: Full Heart: RRR Lungs: CTA Assessment and Plan Final Anesthetic Review Family History of Problems with Anesthesia: No History of Problems with Anesthesia: No NPO: Yes ASA Class: II Final Preanesthetic Review: Meds/Allgs Chart Reviewed, Consent Obtained/Reviewed and Anes Risks/Benef Reviewed Patient Risk: Intermediate Procedure Risk: Low Anesthetic Plan Anesthetic Plan: GA Disposition: Standard PACU
--- NOTE | 2022-09-09 10:54 | P.BOP_ITS ---
Brief Operative Note Date of Service: 09/09/22 Pre-op diagnosis: Retained products of conception Post-op diagnosis: same Procedure: Suction D&C Surgeon: Sid Wright MD Anesthesia: GLMA Was an Cloth Printing Utility Worker used for this Procedure?: No Estimated blood loss (mL): 100 Pathology: other (Retained products of conception) Condition: stable Disposition: PACU
--- NOTE | 2022-09-09 10:55 | W.PM.OPN ---
Operative Note Operative Note Date of Service: 09/09/22 Narrative: Preop diagnosis: Retained products of conception Operation: suction D and C Postop diagnosis: The same EBL: 100 cc Anesthesia: L GMA Graphic Designer: None Pathology: Products of conception Procedure: The patient was put in a dorsal distal mid position was scrubbed and draped in the usual sterile fashion. A sterile speculum was inserted inside the patient's vagina the anterior lip of the cervix was grasped with single-tooth tenaculum the cervix was dilated up to 7 mm. Under ultrasonographic guidance flexible 7. Suction tip was introduced inside the patient ran cavity till the fundus was hit then turning the suction 360 degrees around products of conception was sucked out toward the uterine cavity. The suction tip was taken out of the patient uterine cavity sharp curettings was followed in 4 quadrants of the uterus till a gritty feeling was felt. The suction tip was reintroduced under ultrasonographic guidance and intrauterine blood was sucked. The suction tip was taken out. Single-tooth tenaculum was removed hemostasis assured using pressure. The patient tolerated the procedure well and was transferred to the PACU in a stable condition.
[2022-09-09 11:07] LABS: CT PCR NOT DETECTED (Not Detect.); NG PCR NOT DETECTED (Not Detect.)
--- NOTE | 2022-09-09 11:35 | HO.POSTANES ---
Post Anesthesia Evaluation Post Anesthesia Evaluation Date of Service: 09/09/22 Vital Signs: Vital Signs Temp Pulse Resp BP Pulse Ox O2 Del Method 09/09/22 11:27 67 16 122/67 100 Room Air 09/09/22 11:22 72 16 128/72 99 Room Air 09/09/22 11:17 72 17 135/81 98 Room Air 09/09/22 11:12 97.0 F 96 16 129/81 97 Room Air 09/09/22 09:27 97.6 F 60 16 131/86 98 Room Air 09/09/22 07:20 98.3 F 72 14 127/66 99 Room Air 09/09/22 05:07 98.0 F 61 18 125/67 99 Room Air 09/09/22 04:19 97.8 F 54 18 139/91 H 99 Room Air Anesthesia: General Endotracheal-GETA Mental Status: Awake Pain Control: Satisfactory Nausea/Vomiting: None Hydration: Adequate Anesthesia-Related Issues: No Anes. Related Issues
[2022-09-10 14:55] LABS: BV Int Neg Control Negative (Negative); BV Int Pos Control Positive (Positive)
== END 2022-09-09 11:48 | disposition home or self-care (01) ==
LOC: HO.ED 10:27 → HO.SSS 11:14
PROVIDERS: Emergency Medicine; Emergency Provider Student in an Organized Health Care Education/Training Program; Visit Provider Obstetrics & Gynecology
PROC: (CPT 59812; principal; 2022-09-09 10:30)
DX: O03.4 Incomplete spontaneous abortion without complication (principal); O34.81 Maternal care for other abnormalities of pelvic organs, first trimester; N83.201 Unspecified ovarian cyst, right side; O09.521 Supervision of elderly multigravida, first trimester; Z3A.00 Weeks of gestation of pregnancy not specified; N93.9 Abnormal uterine and vaginal bleeding, unspecified; E03.9 Hypothyroidism, unspecified; Z79.899 Other long term (current) drug therapy; Z88.2 Allergy status to sulfonamides
CPT/HCPCS: 59812; 0353U; 36415; 76830; 76856; 76998; 80053; 81001; 81025; 84702; 85025; 85610; 86850; 86900; 86901; 87480; 87510; 87660; 88305; 99285; J1100; J1885; J2250; J2405; J2590; J3010

== ENCOUNTER → 2022-09-09 05:00 | Outpatient (BNV) | payer OTHER, SELFPAY | PROVIDERS: Emergency Provider Student in an Organized Health Care Education/Training Program; Visit Provider Obstetrics & Gynecology | DX: O03.4 Incomplete spontaneous abortion without complication (principal) | CPT/HCPCS: 59812; 99283 ==

== ENCOUNTER 2022-09-10 08:48 | Outpatient (REF) | payer OTHER, SELFPAY | END 2022-09-10 08:49 | disposition home or self-care (01) | LOC: HO.LNP 08:48 | PROVIDERS: Visit Provider Obstetrics & Gynecology | DX: Z13.89 Encounter for screening for other disorder (principal) ==

== ENCOUNTER 2022-11-27 13:38 | Outpatient (AMB) | payer OTHER, SELFPAY ==
--- NOTE | 2022-11-27 13:50 | MHC.OFFVIS ---
Intake Vital Signs 11/27/22 13:51 Height 5 ft 4 in Weight 184 lb BMI 31.6 BP 120/76 Intake Visit Reasons: post op Block Mason Required: No Allergies shellfish derived [SHELLFISH DERIVED] Allergy (Intermediate, Verified 11/27/22 13:51) ANAPHYLAXIS Sulfa (Sulfonamide Antibiotics) [SULFA (SULFONAMIDE ANTIBIOTICS)] Allergy (Unknown, Verified 11/27/22 13:51) HIVES Is last menstrual period known: No (2 week ago) Post menopausal: No HPI HPI Comments History of Present Illness Details The patient is presenting post suction D&C for retained products of conception done on 09/10, no complaints minimal vaginal bleeding no feverishness chills or abdominal pain. The pathology showed the following: - Degenerated immature chorionic villi and necrotic decidua. - Inflamed membranes. - Benign endometrium PFSH Medical History Well woman exam with routine gynecological exam Hypothyroid Surgical History Hx of appendectomy Family History Paternal Grandmother Cancer Social History Alcohol intake: current Patient Tobacco Use Status: Never used Tobacco Sexual orientation: Straight/Heterosexual Gender identity: Female Female Reproductive History Menstrual Age of Menarche: 13 Review of Systems Const All systems reviewed & are unremarkable except as noted in HPI and below Reports as per HPI and Reports no additional complaints GI Reports no additional complaints Reports no additional complaints Physical Exam Vital Signs: BMI result Body Mass Index 31.6 Assessment & Plan Assessment & Plan (1) Retained products of conception after miscarriage: Comment: Status post suction D&C on 09/10 Code(s): O03.4 - Incomplete spontaneous without complication Plan: HCG quantitative ordered to confirm that eats down to non level if not 0 will repeat to follow it down to 0. Offered the patient different options of control, the patient declined at this point. Orders: Orders HCG Quantitative Today O03.4 - Incomplete spontaneous without complication Coding Level of Care Code Est Pt Level 3 (30363) Diagnoses Retained products of conception after miscarriage O03.4
[2022-11-27 13:51] VITALS: BP 120/76; BMI 31.6
== END 2022-11-27 13:58 | disposition home or self-care (01) ==
PROVIDERS: Visit Provider Obstetrics & Gynecology
DX: O03.4 Incomplete spontaneous abortion without complication (principal)
CPT/HCPCS: 99024

== ENCOUNTER → 2022-11-27 13:38 | Outpatient (BNVA) | payer OTHER, SELFPAY | PROVIDERS: Visit Provider Obstetrics & Gynecology | DX: O03.4 Incomplete spontaneous abortion without complication (principal); Z98.890 Other specified postprocedural states | CPT/HCPCS: 99212 ==

== ENCOUNTER 2023-04-16 14:14 | Outpatient (REF) | payer OTHER, SELFPAY ==
[2023-04-20 03:59] LABS: HPV mRNA E6/E7 rflx Not Detected (Not Detected)
== END 2023-04-16 14:15 | disposition home or self-care (01) ==
LOC: HO.LNP 14:14
PROVIDERS: Visit Provider Obstetrics & Gynecology
DX: Z01.419 Encounter for gynecological examination (general) (routine) without abnormal findings (principal); Z11.51 Encounter for screening for human papillomavirus (HPV)
CPT/HCPCS: 87624; 88142

== ENCOUNTER 2023-04-16 14:14 | Outpatient (AMB) | payer OTHER, SELFPAY ==
--- NOTE | 2023-04-16 14:15 | A.OFFVIS_ITS ---
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 Intake Note: Wants STD screen Elephant Keeper Required: No Information Interpreted: non-clinical & clinical High Energy Forming Equipment Operator: High Energy Forming Equipment Operator Present (Sneha Ashley VALERIY) Accompanied by: Self / Same As Patient Allergies shellfish derived [SHELLFISH DERIVED] Allergy (Intermediate, Verified 04/16/23 14:21) ANAPHYLAXIS Sulfa (Sulfonamide Antibiotics) [SULFA (SULFONAMIDE ANTIBIOTICS)] Allergy (Unknown, Verified 04/16/23 14:21) HIVES Is last menstrual period known: Yes Last menstrual period: 04/03/23 HPI HPI Comments History of Present Illness Details Presenting for annual exam. No complaints. 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 Sexually active: Yes Sexual orientation: Straight/Heterosexual Gender identity: Female Female Reproductive History Menstrual Age of Menarche: 13 Date of last menstrual period: 04/03/23 Total pregnancies: 2 Full term: 2 Number of Living Children: 2 Date of last pap smear: 11/02/21 Review of Systems Const All systems reviewed & are unremarkable except as noted in HPI and below Card Reports as per HPI Resp Reports as per HPI GI Reports as per HPI and Reports no additional complaints Reports as per HPI Physical Exam Vital Signs: Last Vital Signs BP 110/70 04/16/23 14:16 BMI result Body Mass Index 29.2 Const General: cooperative, healthy appearing and comfortable Chest Chest palpation & inspection: normal inspection of the chest and normal palpation of entire chest wall Breast/axilla inspection: normal inspection of the breasts and normal inspection of the axillae Breast/axilla palpation: normal palpation of the breasts, normal palpation of the axillae and no axillary lymphadenopathy Resp Effort & Inspection: normal respiratory effort Auscultation: clear to auscultation bilaterally Percussion: percussion normal Cardio Palpation: normal PMI Rate: regular rate Rhythm: regular rhythm Heart sounds: no murmurs and no rubs Peripheral pulses: Peripheral pulses 2+ throughout GI Inspection: Yes normal to inspection Palpation (GI): Soft to palpation, nontender, no guarding, not rigid and No hepatosplenomegaly present Percussion: Yes normal to percussion Auscultation: normal bowel sounds Rectal Exam - Female: deferred General: Yes bladder normal to palpation External Female Exam: No lesion Speculum Exam - Vagina: normal appearance of the vagina, normal palpation, normal vaginal discharge and not erythematous Speculum Exam - Cervix: normal appearance of the cervix and normal palpation Bimanual exam- vagina & uterus: normal bimanual exam, normal palpation, uterine size normal, bladder normal to palpation, consistency normal and normal palpation Bimanual Exam- Adnexa, other: normal adnexae, no masses and no tenderness Assessment & Plan Assessment & Plan (1) Well woman exam with routine gynecological exam: Comment: Pap negative/HPV positive in 11/16 Code(s): Z01.419 - Encounter for gynecological examination (general) (routine) without abnormal findings Plan: Cotesting done. Counseled the patient about the recommended dietary allowance of 1000 mg of Calcium & 600 IU of vitamin D. The patient was instructed to perform monthly self-breast exams and to schedule an annual exam in a year; All questions answered and the patient verbalized understanding. Instructed the patient to schedule annual exam in a year (2) Screen for sexually transmitted diseases: Code(s): Z11.3 - Encounter for screening for infections with a predominantly sexual mode of transmission Plan: STD screening tests done includes: BV panel for trichomonas, GC/CT will send patient for serology std screening for HIV, RPR, Hep b s Ag, HepC Ab. Instructions given the patient to schedule a follow-up appointment for repeat serology screen in 6 months for possible false negatives. Orders: Orders Hepatitis C Antibody Today Z20.2 - Contact with and (suspected) exposure to infections with a predominantly sexual mode of transmission Hepatitis B Surface Antigen Today Z20.2 - Contact with and (suspected) exposure to infections with a predominantly sexual mode of transmission HIV Ab/Ag Today Z20.2 - Contact with and (suspected) exposure to infections with a predominantly sexual mode of transmission Syphilis Screen Today Z20.2 - Contact with and (suspected) exposure to infections with a predominantly sexual mode of transmission Coding Level of Care Code Est Pt Prev Care 18-39y(11934) Diagnoses Well woman exam with routine gynecological exam Z01.419 Screen for sexually transmitted diseases Z11.3
[2023-04-16 14:16] VITALS: BP 110/70; BMI 29.2
== END 2023-04-16 14:38 | disposition home or self-care (01) ==
LOC: HO.HWS 14:14
PROVIDERS: Visit Provider Obstetrics & Gynecology
DX: Z01.419 Encounter for gynecological examination (general) (routine) without abnormal findings (principal); Z11.3 Encounter for screening for infections with a predominantly sexual mode of transmission
CPT/HCPCS: 99395

== ENCOUNTER 2023-04-16 14:42 | Outpatient (REF) | payer OTHER, SELFPAY ==
[2023-04-16 15:47] LABS: HCG Quantitative < 2 mIU/mL
[2023-04-17 02:16] LABS: Syphilis Screen Nonreactive (Nonreactive)
[2023-04-17 02:51] LABS: HBsAGNum1 0.33 S/CO (0.00-0.99); HIV AB/AG Nonreactive (Nonreactive); HIV Num 1 0.06 S/CO (0.00-0.99); Hepatitis B Surface Antigen Negative (Negative); ~HepC Num1 0.09 S/CO (0.00-0.79); ~Hepatitis C Antibody Nonreactive (Nonreactive)
[2023-04-17 03:18] LABS: CT PCR NOT DETECTED (Not Detect.); NG PCR NOT DETECTED (Not Detect.)
[2023-04-18 11:34] LABS: BV Int Neg Control Negative (Negative); BV Int Pos Control Positive (Positive)
== END 2023-04-16 14:43 | disposition home or self-care (01) ==
LOC: HO.LAB 14:42
PROVIDERS: Visit Provider Obstetrics & Gynecology
DX: O03.4 Incomplete spontaneous abortion without complication (principal); Z20.2 Contact with and (suspected) exposure to infections with a predominantly sexual mode of transmission
CPT/HCPCS: 0353U; 84702; 86780; 86803; 87340; 87389; 87480; 87510; 87660

== ENCOUNTER 2023-07-17 12:35 | Outpatient (AMB) | payer OTHER, SELFPAY ==
--- NOTE | 2023-07-17 12:39 | A.OFFVIS_ITS ---
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 Social Media & Mobile Manager: Sr. Social Media & Mobile Manager Present (Carley) Allergies shellfish derived [SHELLFISH DERIVED] Allergy (Intermediate, Verified 07/17/23 12:45) ANAPHYLAXIS Sulfa (Sulfonamide Antibiotics) [SULFA (SULFONAMIDE ANTIBIOTICS)] Allergy (Unknown, Verified 07/17/23 12:45) HIVES Is last menstrual period known: Yes Last menstrual period: 07/07/23 Post menopausal: No HPI Comments Details: The patient is presenting for counseling, she Is interested in conceiving, her menstrual cycles are regular and not heavy 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 Sexual orientation: Straight/Heterosexual Gender identity: Female Female Reproductive History Menstrual Age of Menarche: 13 Duration of menses: 3-5 days Date of last menstrual period: 07/07/23 control method: none Total pregnancies: 3 Full term: 2 Number of Living Children: 2 Ab spontaneous: 1 Date of last pap smear: 04/17/23 (negative) Review of Systems Const All systems reviewed & are unremarkable except as noted in HPI and below Reports as per HPI and Reports no additional complaints GI Reports no additional complaints Reports no additional complaints Physical Exam Vital Signs: Last Vital Signs BP 114/70 07/17/23 12:44 BMI result Body Mass Index 30.0 Results AMB Test Urine AMB Test Urine Negative Last Edit by VALERIY Almeida on 07/17/23 12:49 Results Reviewed Results Reviewed: Laboratory Last Values [facility] Negative 07/17/23 12:48 Assessment & Plan Assessment & Plan (1) screening encounter: Comment: KIMMIE Code(s): Z36.9 - Encounter for screening, unspecified Category: Medical Plan: vitamin 1 tablet p.o. q.d. 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 Instructed the patient to eat a balanced diet exercise routinely, avoid raw fish, do not remove any cat's litter box to avoid toxoplasmosis, do not use alcohol and smoking or drugs start vitamin 1 tablet p.o. q.d. avoid nonsteroidal anti-inflammatory drugs or any medication use other than Tylenol, will order hepatitis B surface antigen, HIV, fasting blood sugar, hepatitis-C antibody, RPR, rubella it, varicella immunoglobulins, cystic fibrosis screen. Also discussed the patient the chance of 50% within 6 months, 75% within is 9 months, 90% at 1 year risk of infertility being 10% and a signs and symptoms of miscarriage and ectopic recommended to the patient to call early after a positive test to document an intrauterine . Also discussed the patient around 25% of and the with a spontaneous for genetic abnormalities.Insert plan counseling Discussed with the patient the advanced maternal age( AMA) and risk of aneuploidy. Options include after screening with maternal cell free DNA, 1st trimester, QS, AFP for neural tube defects and ultrasound vs genetic testing including CVS and amniocentesis, all pros, cons, risks and benefits, detection rates, False positive and negatives, sensitivities, specificities of each test were discussed with the patient. Also discussed with the patient risk of AMA on including but not limited to SAB, gestational diabetes mellitus, hypertensive disorders, increased mortality especially after 40 year of age. Once Will refer to genetic counseling with MFM will start with early 1 hr glucose screen, baseline preeclampsia workup baby aspirin 81 mg p.o. b.i.d. starting 12-16 weeks tilll 2 weeks , if any other comorbidity occurs during consider testing Discussed with the patient that several studies suggest a progressively increased RR of stillbirth with advancing maternal age; Individuals without medical conditions who are age 40 and older have a 1.79-fold increased RR of stillbirth at term (37?41 weeks) compared with individuals younger than 35 years. Per ACOG, in the absence of other risks factors for stillbirth, there is insufficient evidence to recommend routine surveillance for the isolated indication of maternal age of 35 years or older. All questions answered, the patient verbalized understanding Orders: Orders AMB HCG Urine Test Today Z32.02 - Encounter for test, result negative Complete Blood Count no Diff Today Z36.9 - Encounter for screening, unspecified HIV Ab/Ag Today Z36.9 - Encounter for screening, unspecified Screen Today Z36.9 - Encounter for screening, unspecified Rubella IgG Antibody Today Z36.9 - Encounter for screening, unspecified Varicella IgG Antibody Today Z36.9 - Encounter for screening, unspecified CF Carrier Screen Today Z36.9 - Encounter for screening, unspecified Hepatitis B Surface Antigen Today Z32.01 - Encounter for test, result positive, Z36.9 - Encounter for screening, unspecified Hepatitis C Antibody Today Z36.9 - Encounter for screening, unspecified Syphilis Screen Today Z36.9 - Encounter for screening, unspecified Glucose Fasting Today Z36.9 - Encounter for screening, unspecified Coding Level of Care Code Est Pt Level 3 (91353) Diagnoses screening encounter Z36.9
[2023-07-17 12:44] VITALS: BP 114/70
== END 2023-07-17 14:59 | disposition home or self-care (01) ==
PROVIDERS: Visit Provider Obstetrics & Gynecology
DX: Z36.9 Encounter for antenatal screening, unspecified (principal); Z32.02 Encounter for pregnancy test, result negative
CPT/HCPCS: 99213

== ENCOUNTER → 2023-07-17 12:35 | Outpatient (BNVA) | payer OTHER, SELFPAY | PROVIDERS: Visit Provider Obstetrics & Gynecology | DX: Z36.9 Encounter for antenatal screening, unspecified (principal); Z32.02 Encounter for pregnancy test, result negative | CPT/HCPCS: 81025; 99212 ==

== ENCOUNTER 2023-09-11 15:55 | Outpatient (REF) | payer OTHER, SELFPAY ==
[2023-09-11 17:31] LABS: Hematocrit 40.5 % (37.0-47.0); Hemoglobin 12.9 g/dl (12.0-16.0); Mean Corpuscular HGB Conc 31.9 g/dl (31.0-35.0); Mean Corpuscular Hemoglobin 28.8 pg (27.0-33.0); Mean Corpuscular Volume 90.4 fL (80.0-98.0); Mean Platelet Volume 9.1 fL (9.4-12.3); Platelet Count 414 X10*3/uL (160-400); Red Blood Count 4.48 X10*6/uL (4.20-5.50); White Blood Count 10.7 X10*3/uL (4.8-10.8)
[2023-09-11 18:04] LABS: Glucose Fasting 77 mg/dL (60-99)
[2023-09-12 04:24] LABS: Syphilis Screen Nonreactive (Nonreactive)
[2023-09-12 04:33] LABS: HBsAGNum1 0.38 S/CO (0.00-0.99); HIV AB/AG Nonreactive (Nonreactive); HIV Num 1 0.05 S/CO (0.00-0.99); Hepatitis B Surface Antigen Negative (Negative); ~HepC Num1 0.07 S/CO (0.00-0.79); ~Hepatitis C Antibody Nonreactive (Nonreactive)
[2023-09-12 17:43] LABS: Rubella IgG Antibody 1.16 Index
[2023-09-24 12:49] LABS: CF Ethnicity NG; Cystic Fibrosis NEGATIVE (NEGATIVE)
== END 2023-09-11 15:56 | disposition home or self-care (01) ==
LOC: HO.LAB 15:55
PROVIDERS: Visit Provider Obstetrics & Gynecology
DX: Z36.9 Encounter for antenatal screening, unspecified (principal); Z32.01 Encounter for pregnancy test, result positive
CPT/HCPCS: 36415; 81220; 82947; 85027; 86762; 86780; 86787; 86803; 86850; 86900; 87340; 87389

== ENCOUNTER 2023-09-12 09:09 | Outpatient (AMB) | payer OTHER, SELFPAY ==
--- NOTE | 2023-09-12 09:13 | MHC.OFFVIS ---
Vital Signs 09/12/23 09:16 Height 5 ft 4 in Weight 174 lb 2.643 oz BMI 29.9 BP 118/70 Intake Visit Reasons: HCG follow up Allergies shellfish derived [SHELLFISH DERIVED] Allergy (Intermediate, Verified 07/17/23 12:45) ANAPHYLAXIS Sulfa (Sulfonamide Antibiotics) [SULFA (SULFONAMIDE ANTIBIOTICS)] Allergy (Unknown, Verified 07/17/23 12:45) HIVES HPI Comments Details: Presenting complaining of 1 week history of amenorrhea, the patient took multiple test and were negative at home. No associated nipple discharge or hair growth. The patient had pelvic ultrasound in 09/16 in the emergency room which showed a complex ovarian cyst. 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 Sexual orientation: Straight/Heterosexual Gender identity: Female Female Reproductive History Menstrual Age of Menarche: 13 Review of Systems Const All systems reviewed & are unremarkable except as noted in HPI and below Reports as per HPI and Reports no additional complaints GI Reports no additional complaints Reports no additional complaints Physical Exam Vital Signs: Last Vital Signs BP 118/70 09/12/23 09:16 BMI result Body Mass Index 29.9 Results AMB Test Urine AMB Test Urine Negative Last Edit by Sneha Ashley CMA on 09/12/23 09:32 Assessment & Plan Assessment & Plan (1) Complex ovarian cyst: Code(s): N83.299 - Other ovarian cyst, unspecified side Category: Medical Plan: Will order a pelvic ultrasound to follow up on the previously identified complex ovarian cyst on 09/16 pelvic ultrasound. Instructions given the patient to schedule an ultrasound follow-up appointment afterwards. All questions answered, the patient verbalized understanding (2) Amenorrhea: Code(s): N91.2 - Amenorrhea, unspecified Category: Medical Plan: Urine test done in the office was negative, will order hCG quantitative. Instructions given the patient to schedule a 2 week follow-up appointment. All questions answered, the patient verbalized understanding. Orders: Orders AMB HCG Urine Test Today Z32.02 - Encounter for test, result negative HCG Quantitative Today N83.299 - Other ovarian cyst, unspecified side, N91.2 - Amenorrhea, unspecified US pelvic and transvaginal Today N83.299 - Other ovarian cyst, unspecified side Coding Level of Care Code Est Pt Level 3 (28170) Diagnoses Complex ovarian cyst N83.299 Amenorrhea N91.2
[2023-09-12 09:16] VITALS: BP 118/70; BMI 29.9
== END 2023-09-12 09:57 | disposition home or self-care (01) ==
LOC: HO.HWS 09:09
PROVIDERS: Visit Provider Obstetrics & Gynecology
DX: N83.299 Other ovarian cyst, unspecified side (principal); N91.2 Amenorrhea, unspecified; Z32.02 Encounter for pregnancy test, result negative
CPT/HCPCS: 99213

== ENCOUNTER 2023-09-12 09:09 | Outpatient (REF) | payer OTHER, SELFPAY ==
[2023-09-12 11:16] LABS: HCG Quantitative < 2 mIU/mL
== END 2023-09-12 09:10 | disposition home or self-care (01) ==
LOC: HO.LAB 09:09
PROVIDERS: Visit Provider Obstetrics & Gynecology
DX: N83.299 Other ovarian cyst, unspecified side (principal); N91.2 Amenorrhea, unspecified; Z32.02 Encounter for pregnancy test, result negative
CPT/HCPCS: 36415; 81025; 84702; 99212

== ENCOUNTER 2023-09-16 14:28 | Outpatient (REF) | payer OTHER, SELFPAY ==
--- NOTE | ~2023-09-16 | US_ITS ---
EXAMINATION: US PELVIS COMPLETE CLINICAL INFORMATION: Ovarian cyst; the last menstrual period was 6 weeks prior. COMPARISON: Pelvic ultrasound dated 09/09/2022. TECHNIQUE: Transabdominal and transvaginal imaging were performed. FINDINGS: The uterus is of normal size and echogenicity measuring 6.9 x 3.4 x 3.7 cm. The uterus is anteverted and anteflexed. A regular, homogeneous endometrium is identified measuring 0.5 cm. Nabothian cysts are seen within the cervix. FIBROIDS: There is 1 fibroid seen. 1. Location: Posterior fundus, myometrial. Size: 0.4 x 0.4 x 0.3 cm. Prior: Not seen. Fibroid characteristics: Hypoechoic. Both ovaries are of normal size and echogenicity. The right ovary measures 3.3 x 2.7 x 3.3 cm for a volume of 10.7 mL. The right ovary contains a 3.1 cm in maximal diameter benign, simple cyst, for which no imaging follow-up is recommended. The left ovary measures 2.2 x 1.5 x 1.3 cm for a volume of 2.3 mL. There is no pelvic free fluid. US/US pelvic and transvaginal IMPRESSION: 1. A small uterine fibroid is seen within the fundus. 2. Nabothian cysts are seen within the cervix. 3. A 3.1 cm benign, functional right ovarian cyst is seen, for which no imaging follow-up is recommended.
== END 2023-09-16 14:29 | disposition home or self-care (01) ==
LOC: HO.US 14:28
PROVIDERS: Visit Provider Obstetrics & Gynecology
DX: N83.299 Other ovarian cyst, unspecified side (principal)
CPT/HCPCS: 76830; 76856

== ENCOUNTER 2024-01-14 11:23 | Outpatient (AMB) | payer OTHER, SELFPAY ==
[2024-01-14 11:26] VITALS: BP 108/62
--- NOTE | 2024-01-14 11:26 | MHC.OFFVIS ---
Vital Signs 01/14/24 11:26 Weight 174 lb BP 108/62 Intake Visit Reasons: US follow up/2nd appt Machine Lacer: Machine Lacer Present (Iesha) Accompanied by: Self / Same As Patient Allergies shellfish derived [SHELLFISH DERIVED] Allergy (Intermediate, Verified 01/14/24 11:26) ANAPHYLAXIS Sulfa (Sulfonamide Antibiotics) [SULFA (SULFONAMIDE ANTIBIOTICS)] Allergy (Unknown, Verified 01/14/24 11:26) HIVES HPI Comments Details: Presenting for ultrasound follow-up regarding right complex ovarian cyst seen on previous ultrasound. 09/16/23, repeat pelvic ultrasound showed the following: The uterus is of normal size and echogenicity measuring 6.9 x 3.4 x 3.7 cm. The uterus is anteverted and anteflexed. A regular, homogeneous endometrium is identified measuring 0.5 cm. Nabothian cysts are seen within the cervix. FIBROIDS: There is 1 fibroid seen. 1. Location: Posterior fundus, myometrial. Size: 0.4 x 0.4 x 0.3 cm. Prior: Not seen. Fibroid characteristics: Hypoechoic. Both ovaries are of normal size and echogenicity. The right ovary measures 3.3 x 2.7 x 3.3 cm for a volume of 10.7 mL. The right ovary contains a 3.1 cm in maximal diameter benign, simple cyst, for which no imaging follow-up is recommended. The left ovary measures 2.2 x 1.5 x 1.3 cm for a volume of 2.3 mL. There is no pelvic free fluid. 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 Sexual orientation: Straight/Heterosexual Gender identity: Female Female Reproductive History Menstrual Age of Menarche: 13 Review of Systems Const All systems reviewed & are unremarkable except as noted in HPI and below Reports as per HPI and Reports no additional complaints GI Reports no additional complaints Reports no additional complaints Physical Exam Vital Signs: Last Vital Signs BP 108/62 01/14/24 11:26 Assessment & Plan Assessment & Plan (1) Complex ovarian cyst: Code(s): N83.299 - Other ovarian cyst, unspecified side Category: Medical Plan: Discussed with the patient ultrasound findings showing the previously identified complex cyst has resolved. The patient was instructed to call if symptoms recur. All questions were answered the patient verbalized understanding. (2) Uterine myoma: Code(s): D25.9 - Leiomyoma of uterus, unspecified Category: Medical Plan: Discussed with the patient the findings on pelvic ultrasound & the risk of myosarcoma; discussed with the patient the options of treatment including expectant management versus hysterectomy; the pros and cons, risks benefits of each approach were discussed with the patient including the fact that in cases of myosarcoma, surgical treatment can lead to early diagnosis and positively affects the prognosis; after further discussion, the patient decided to proceed with expectant management. Will repeat pelvic ultrasound periodically. Instructions given to patient to call in case any of the following occurs: pressure symptoms, abnormal uterine bleeding, pelvic pain; and to schedule a 12 months pelvic ultrasound and a follow-up appointment . All questions answered, the patient verbalized understanding and agreed with the plan . Orders: Orders US pelvic and transvaginal 1 Year D25.9 - Leiomyoma of uterus, unspecified Coding Level of Care Code Est Pt Level 3 (96840) Diagnoses Complex ovarian cyst N83.299 Uterine myoma D25.9
== END 2024-01-14 11:54 | disposition home or self-care (01) ==
LOC: HO.HWS 11:23
PROVIDERS: Visit Provider Obstetrics & Gynecology
DX: N83.299 Other ovarian cyst, unspecified side (principal); D25.9 Leiomyoma of uterus, unspecified
CPT/HCPCS: 99213

== ENCOUNTER → 2024-01-14 11:23 | Outpatient (BNVA) | payer OTHER, SELFPAY | PROVIDERS: Visit Provider Obstetrics & Gynecology | DX: N83.291 Other ovarian cyst, right side (principal); D25.9 Leiomyoma of uterus, unspecified | CPT/HCPCS: 99212 ==

== ENCOUNTER 2024-05-26 10:48 | Outpatient (AMB) | payer OTHER, SELFPAY ==
--- NOTE | 2024-05-26 10:53 | A.OFFVIS_ITS ---
Intake Visit Reasons: Heavy menses Laboratory Courier: Laboratory Courier Present (Iesha) Accompanied by: Self / Same As Patient Allergies shellfish derived [SHELLFISH DERIVED] Allergy (Intermediate, Verified 05/26/24 10:56) ANAPHYLAXIS Sulfa (Sulfonamide Antibiotics) [SULFA (SULFONAMIDE ANTIBIOTICS)] Allergy (Unknown, Verified 05/26/24 10:56) HIVES HPI Comments Details: The patient is presenting c/o irregular bleeding associated with passage of blood clots and abdominal cramping. 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 Sexual orientation: Straight/Heterosexual Gender identity: Female Female Reproductive History Menstrual Age of Menarche: 13 Duration of menses: <3 days Date of last menstrual period: 06/23/24 Review of Systems Const All systems reviewed & are unremarkable except as noted in HPI and below Card Reports as per HPI Resp Reports as per HPI GI Reports as per HPI and Reports no additional complaints Reports as per HPI Physical Exam Const General: cooperative, healthy appearing and comfortable Chest Chest palpation & inspection: normal inspection of the chest and normal palpation of entire chest wall Breast/axilla inspection: normal inspection of the breasts and normal inspection of the axillae Breast/axilla palpation: normal palpation of the breasts, normal palpation of the axillae and no axillary lymphadenopathy Resp Effort & Inspection: normal respiratory effort Auscultation: clear to auscultation bilaterally Percussion: percussion normal Cardio Palpation: normal PMI Rate: regular rate Rhythm: regular rhythm Heart sounds: no murmurs and no rubs Peripheral pulses: Peripheral pulses 2+ throughout GI Inspection: Yes normal to inspection Palpation (GI): Soft to palpation, nontender, no guarding, not rigid and No hepatosplenomegaly present Percussion: Yes normal to percussion Auscultation: normal bowel sounds Rectal Exam - Female: deferred General: Yes bladder normal to palpation External Female Exam: No lesion Speculum Exam - Vagina: normal appearance of the vagina, normal palpation, normal vaginal discharge and not erythematous Speculum Exam - Cervix: normal appearance of the cervix and normal palpation Bimanual exam- vagina & uterus: normal bimanual exam, normal palpation, uterine size normal, bladder normal to palpation, consistency normal and normal palpation Bimanual Exam- Adnexa, other: normal adnexae, no masses and no tenderness Assessment & Plan Assessment & Plan (1) Abnormal uterine bleeding: Code(s): N93.9 - Abnormal uterine and vaginal bleeding, unspecified Category: Medical Plan: GC and chlamydia taken CBC, TSH, HCG, and pelvic ultrasound ordered. Discussed with the patient the different causes of abnormal bleeding including thyroid disorders, uterine and ovarian pathology, endometrial hyperplasia, carcinoma and other potential causes. Discussed with the patient the work up including CBC (to r/o anemia), TSH, pelvic Ultrasound, endometrial biopsy to r/o endometrial pathology. All questions answered and the patient verbalized understanding. Instructed the patient to schedule an appointment for an endometrial biopsy in 2 weeks. Orders: Orders Complete Blood Count no Diff Today N93.9 - Abnormal uterine and vaginal bleeding, unspecified TSH reflex Free T4 Today N93.9 - Abnormal uterine and vaginal bleeding, unspecified US pelvic and transvaginal Today N93.9 - Abnormal uterine and vaginal bleeding, unspecified HCG Quantitative Today N93.9 - Abnormal uterine and vaginal bleeding, unspecified Coding Level of Care Code Est Pt Level 3 (58928) Diagnoses Abnormal uterine bleeding N93.9
--- OUTSIDE RECORDS SUMMARY | 2024-05-26 12:58 | XMS_ITS | Clinical Summary ---
Author Organization [facility] Address [address] [place] [address] Care Team Providers Care Production Hardener Name Role Phone Unavailable Primary Care Provider Unavailabl e Allergies No known active allergies Medications Medication Sig Dispensed Refills Start Date End Date Status ALPRAZolam (XANAX) 0.5 MG tablet Take 1 tablet (0.5 mg total) by mouth every night at bedtime as needed for sleep. 10 tablet 0 05/05/2021 Active Active Problems No known active problems Social History Tobacco Use Types Packs/Day Years Used Date Smoking Tobacco: Never Smokeless Tobacco: Never Sex and Gender Information Value Date Recorded Sex Assigned at Not on file Gender Identity Not on file Sexual Orientation Not on file Job Start Date Occupation Industry Not on file Not on file Not on file Last Filed Vital Signs Vital Sign Reading Time Taken Comments Blood Pressure 110/70 05/16/2021 12:32 PM EDT Pulse 78 05/16/2021 12:32 PM EDT Temperature 36.3 ??C (97.3 ??F) 05/16/2021 12:32 PM E DT Respiratory Rate 14 05/16/2021 12:32 PM EDT Oxygen Saturation 99% 05/16/2021 12:32 PM EDT Inhaled Oxygen Concentration - - Weight 80.3 kg (177 lb) 05/16/2021 12:32 PM EDT Height - - Body Mass Index - - Plan of Treatment Health Maintenance Due Date Last Done Comments Hepatitis B Vaccines (1 of 3 - 3-dose series) 1985 Hepatitis C Screening 1985 Depression Screening 1997 Preventative Health Evaluation 09/19/2003 DTap / Tdap / Td (1 - Tdap) 2004 Cervical Cancer Screening (Pap Smear) 2006 COVID-19 Vaccine (2023-2 5 season) 2023 08/08/2020, 07/18/2020 Influenza Vaccine (#1) 2023 Pneumococcal Vaccine Aged Out No long er eligible based on patient's age to complete this topic RSV Ped < 20 months Aged Out No longe r eligible based on patient's age to complete this topic
== END 2024-05-26 11:03 | disposition home or self-care (01) ==
LOC: HO.HWS 10:48
PROVIDERS: Visit Provider Obstetrics & Gynecology
DX: N93.9 Abnormal uterine and vaginal bleeding, unspecified (principal)
CPT/HCPCS: 99213

== ENCOUNTER 2024-05-26 10:48 | Outpatient (REF) | payer OTHER, SELFPAY ==
[2024-05-26 11:54] LABS: Hematocrit 41.9 % (37.0-47.0); Hemoglobin 13.4 g/dl (12.0-16.0); Mean Corpuscular Hemoglobin 28.4 pg (27.0-33.0); Mean Corpuscular Volume 88.8 fL (80.0-98.0); Mean Platelet Volume 9.1 fL (9.4-12.3); Platelet Count 360 X10*3/uL (160-400); Red Blood Count 4.72 X10*6/uL (4.20-5.50); White Blood Count 6.3 X10*3/uL (4.8-10.8)
[2024-05-26 12:47] LABS: HCG Quantitative < 2 mIU/mL; TSH reflex Free T4 2.88 uIU/mL (0.32-4.0)
--- OUTSIDE RECORDS SUMMARY | 2024-05-26 13:20 | XMS_ITS | Clinical Summary ---
Author Organization [facility] Address [address] [place] [address] Care Team Providers Care Technical Training Manager Name Role Phone Unavailable Primary Care Provider [...]
[2024-05-27 10:41] LABS: CT PCR NOT DETECTED (Not Detect.); NG PCR NOT DETECTED (Not Detect.)
== END 2024-05-26 10:49 | disposition home or self-care (01) ==
LOC: HO.LNP 10:48
PROVIDERS: Visit Provider Obstetrics & Gynecology
DX: N93.9 Abnormal uterine and vaginal bleeding, unspecified (principal)
CPT/HCPCS: 84443; 84702; 85027; 87491; 87591; 99212

== ENCOUNTER 2024-05-26 11:19 | Outpatient (REF) | payer OTHER, SELFPAY | END 2024-05-26 11:20 | disposition home or self-care (01) | LOC: HO.LAB 11:19 | PROVIDERS: Visit Provider Obstetrics & Gynecology | DX: Z13.89 Encounter for screening for other disorder (principal) ==

== ENCOUNTER 2024-07-14 13:31 | Outpatient (REF) | payer OTHER, SELFPAY ==
--- NOTE | ~2024-07-14 | US_ITS ---
EXAMINATION: US LESS THAN 14 WEEKS WITH TRANSVAGINAL HISTORY: N93.9 - Abnormal uterine and vaginal bleeding, unspecified COMPARISON: Comparison is made with the prior examination dated 09/16/2023. TECHNIQUE: Transabdominal and endovaginal real-time 2D carrillo-scale ultrasound was performed. FINDINGS: Uterus: The uterus is normal in size, measuring 8.4 x 3.5 x 4.4 cm. Myometrium has a normal echotexture. There is a 5 mm posterior fibroid. No IUP is identified. Endometrium: The endometrial stripe measures 12 mm in thickness. There are nabothian cysts in the cervix. Right ovary: The right ovary measures 2.7 x 1.2 x 1.6 cm. The right ovary is normal in size and echotexture. Left ovary: The left ovary measures 3.0 x 2.3 x 2.4 cm. The left ovary is normal in size and echotexture. There is a 1.8 cm cyst versus follicle. Pelvic fluid: none. US/US OB pelvic and transvaginal IMPRESSION: 1. No IUP is identified. Correlation with beta hCG levels and follow-up ultrasound are recommended. 2. 5 mm posterior uterine fibroid. The endometrial stripe measures 12 mm in thickness. Electronically signed by: Khadra Arthur MD 07/14/2024 03:19 PM EDT
--- OUTSIDE RECORDS SUMMARY | 2024-07-14 14:43 | XMS_ITS | Clinical Summary ---
Author Organization [facility] Address [address] [place] [address] Care Team Providers Care Exterminator Termite Name Role Phone Unavailable Primary Care Provider [...]
== END 2024-07-14 13:32 | disposition home or self-care (01) ==
LOC: HO.US 13:31
PROVIDERS: Visit Provider Obstetrics & Gynecology
DX: N93.9 Abnormal uterine and vaginal bleeding, unspecified (principal)
CPT/HCPCS: 76801; 76817

== ENCOUNTER → 2024-07-14 13:33 | Outpatient (BNV) | payer OTHER, SELFPAY | PROVIDERS: Visit Provider Radiology Diagnostic Radiology | DX: O99.891 Other specified diseases and conditions complicating pregnancy (principal); N83.202 Unspecified ovarian cyst, left side; D25.9 Leiomyoma of uterus, unspecified; Z3A.01 Less than 8 weeks gestation of pregnancy | CPT/HCPCS: 76801; 76817 ==

== ENCOUNTER 2024-07-15 13:11 | Outpatient (REF) | payer OTHER, SELFPAY ==
--- OUTSIDE RECORDS SUMMARY | 2024-07-15 13:48 | XMS_ITS | Clinical Summary ---
Author Organization [facility] Address [address] [place] [address] Care Team Providers Care Healthcare Social Worker Name Role Phone Unavailable Primary Care Provider [...]
[2024-07-15 13:54] LABS: HCG Quantitative 428 mIU/mL
== END 2024-07-15 13:12 | disposition home or self-care (01) ==
LOC: HO.LAB 13:11
PROVIDERS: PCP Physician Assistant Medical; Visit Provider Obstetrics & Gynecology
DX: Z34.90 Encounter for supervision of normal pregnancy, unspecified, unspecified trimester (principal); E03.9 Hypothyroidism, unspecified; Z3A.01 Less than 8 weeks gestation of pregnancy
CPT/HCPCS: 36415; 84702; 99212

== ENCOUNTER 2024-07-15 14:26 | Outpatient (AMB) | payer OTHER, SELFPAY ==
[2024-07-15 14:39] VITALS: BMI 29.9
--- NOTE | 2024-07-15 14:39 | MHC.OFFVIS ---
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 No pelvic cramping and or bleeding. On vitamin 1 tablet p.o. q.d. 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/Heterosexual Gender identity: Female Female Reproductive History Menstrual Age of Menarche: 13 Review of Systems Const All systems reviewed & are unremarkable except as noted in HPI and below Reports as per HPI and Reports no additional complaints GI Reports no additional complaints Reports no additional complaints Physical Exam Vital Signs: BMI result Body Mass Index 29.9 Assessment & Plan Assessment & Plan (1) Early stage of : Code(s): Z34.90 - Encounter for supervision of normal , unspecified, unspecified trimester Category: Medical Plan: HCG q.48h HCG on Monday 07/17, hCG on 07/21 with ultrasound, ordered Instructions given the patient to go to the emergency room for hCG/ultrasound shows evaluation on Wednesday 07/19 SAB/ectopic warnings, the patient was given instructions to call or go to emergency room in case of pelvic pain and or bleeding All questions answered, the patient verbalized understanding Orders: Orders HCG Quantitative 07/21/24 Z34.90 - Encounter for supervision of normal , unspecified, unspecified trimester HCG Quantitative Today Z34.90 - Encounter for supervision of normal , unspecified, unspecified trimester US pelvic and transvaginal Today Z34.90 - Encounter for supervision of normal , unspecified, unspecified trimester Coding Level of Care Code Est Pt Level 3 (48400) Diagnoses Early stage of Z34.90
--- OUTSIDE RECORDS SUMMARY | 2024-07-15 14:41 | XMS_ITS | Clinical Summary ---
Author Organization [facility] Address [address] [place] [address] Care Team Providers Care Flat Ironer Name Role Phone Unavailable Primary Care Provider [...]
== END 2024-07-15 15:52 | disposition home or self-care (01) ==
LOC: HO.HWS 14:26
PROVIDERS: Visit Provider Obstetrics & Gynecology
DX: Z34.90 Encounter for supervision of normal pregnancy, unspecified, unspecified trimester (principal)
CPT/HCPCS: 99213

== ENCOUNTER 2024-07-17 08:12 | Outpatient (REF) | payer OTHER, SELFPAY ==
--- OUTSIDE RECORDS SUMMARY | 2024-07-17 08:14 | XMS_ITS | Clinical Summary ---
Author Organization [facility] Address [address] [place] [address] Care Team Providers Care Petroleum Transport Driver Name Role Phone Unavailable Primary Care Provider [...]
[2024-07-17 08:53] LABS: HCG Quantitative 804 mIU/mL
== END 2024-07-17 08:13 | disposition home or self-care (01) ==
LOC: HO.US 08:12
PROVIDERS: PCP Physician Assistant Medical; Visit Provider Obstetrics & Gynecology
DX: Z34.90 Encounter for supervision of normal pregnancy, unspecified, unspecified trimester (principal)
CPT/HCPCS: 36415; 84702

== ENCOUNTER 2024-07-19 08:29 | Outpatient (REF) | payer OTHER, SELFPAY ==
--- OUTSIDE RECORDS SUMMARY | 2024-07-19 08:32 | XMS_ITS | Clinical Summary ---
Author Organization [facility] Address [address] [place] [address] Care Team Providers Care Contract Recruiter Name Role Phone Unavailable Primary Care Provider [...]
[2024-07-19 09:23] LABS: HCG Quantitative 1672 mIU/mL
== END 2024-07-19 08:30 | disposition home or self-care (01) ==
LOC: HO.LAB 08:29
PROVIDERS: Visit Provider Obstetrics & Gynecology
DX: Z34.90 Encounter for supervision of normal pregnancy, unspecified, unspecified trimester (principal)
CPT/HCPCS: 36415; 84702

== ENCOUNTER 2024-07-21 08:28 | Outpatient (REF) | payer OTHER, SELFPAY ==
--- NOTE | ~2024-07-21 | US_ITS ---
EXAMINATION: US OBSTETRICAL ULTRASOUND CLINICAL INFORMATION: Early . COMPARISON: 07/14/2024 ultrasound. LMP: 06/14/2024. Gestational age by maternal dates is 5 weeks, 2 days. Estimated date of delivery by maternal dates is 03/21/2025. TECHNIQUE: Ultrasound of the maternal pelvis is performed using transabdominal and transvaginal transducers. Transvaginal imaging is performed due to inadequate visualization transabdominally. M-mode Doppler is also performed. FINDINGS: There is a gestational sac within the fundus of the endometrium, without definite pole seen. Normal yolk sac. Mean sac diameter measures 0.61 cm, correlating to an estimated gestational age of 5 weeks and 1 day. No subchorionic hemorrhage seen. No detectable heart rate. Normal myometrial without evidence of mass or fibroid. MATERNAL ADNEXA: The right maternal ovary measures 2.3 x 1.4 x 1.2 cm. Normal sonographic appearance. The left maternal ovary measures 2.7 x 2.7 x 2.0 cm. Corpus luteal cyst present measuring 1.5 cm. There is a simple follicular cyst measuring 1.6 cm. There is no significant maternal adnexal mass. No maternal pelvic ascites. US/US OB pelvic and transvaginal IMPRESSION: 1. Gestational sac identified within the fundus of the endometrial canal with good dual decidual reaction, yolk sac, and with an estimated gestational sac diameter correlating to 5 weeks and 1 day. No pole identified currently. This may be due to the early stage of the gestation. No definite subchorionic hemorrhage. 2. No maternal adnexal mass or pelvic ascites. 3. Normal ovaries bilaterally. Electronically signed by: Angel Luis Randolph MD 07/21/2024 10:16 AM EDT
--- OUTSIDE RECORDS SUMMARY | 2024-07-21 08:47 | XMS_ITS | Clinical Summary ---
Author Organization [facility] Address [address] [place] [address] Care Team Providers Care Printing Press Machinist Name Role Phone Unavailable Primary Care Provider [...]
[2024-07-21 09:40] LABS: HCG Quantitative 3432 mIU/mL
== END 2024-07-21 08:29 | disposition home or self-care (01) ==
LOC: HO.US 08:28
PROVIDERS: PCP Physician Assistant Medical; Visit Provider Obstetrics & Gynecology
DX: N93.9 Abnormal uterine and vaginal bleeding, unspecified (principal); Z34.90 Encounter for supervision of normal pregnancy, unspecified, unspecified trimester
CPT/HCPCS: 36415; 76801; 76817; 84702; 99212

== ENCOUNTER → 2024-07-21 08:43 | Outpatient (BNV) | payer OTHER, SELFPAY | PROVIDERS: PCP Physician Assistant Medical; Visit Provider Radiology Diagnostic Radiology | DX: O26.891 Other specified pregnancy related conditions, first trimester (principal) | CPT/HCPCS: 76801; 76817 ==

== ENCOUNTER 2024-07-21 11:48 | Outpatient (AMB) | payer OTHER, SELFPAY ==
--- NOTE | 2024-07-21 11:53 | A.OFFVIS_ITS ---
Intake Visit Reasons: Ultrasound results/HCG Allergies shellfish derived [SHELLFISH DERIVED] Allergy (Intermediate, Verified 07/21/24 11:54) ANAPHYLAXIS Sulfa (Sulfonamide Antibiotics) [SULFA (SULFONAMIDE ANTIBIOTICS)] Allergy (Unknown, Verified 07/21/24 11:54) HIVES HPI Comments Details: Presenting for follow-up with no complaints no pelvic pressure or pain or cramping or vaginal spotting/bleeding. On vitamin 1 tablet p.o. q.d. 07/15 hCG level was 428 07/17 went up to 804 07/19 1672 Today went up to 3432 Pelvic ultrasound showed the following: IMPRESSION: 1. Gestational sac identified within the fundus of the endometrial canal with good dual decidual reaction, yolk sac, and with an estimated gestational sac diameter correlating to 5 weeks and 1 day. No pole identified currently. This may be due to the early stage of the gestation. No definite subchorionic hemorrhage. 2. No maternal adnexal mass or pelvic ascites. 3. Normal ovaries bilaterally. 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 Sexual orientation: Straight/Heterosexual Gender identity: Female Female Reproductive History Menstrual Age of Menarche: 13 Review of Systems Const All systems reviewed & are unremarkable except as noted in HPI and below Reports as per HPI and Reports no additional complaints GI Reports no additional complaints Reports no additional complaints Assessment & Plan Assessment & Plan (1) Early stage of : Code(s): Z34.90 - Encounter for supervision of normal , unspecified, unspecified trimester Category: Medical Plan: Discussed with the patient the rate of rise of hCG and ultrasound finding, recommended repeat ultrasound at least 11 days from today. SAB warnings given to the patient, instructions were given to the patient to call or go to emergency room in case of pelvic pain and or cramping or bleeding, to schedule ultrasound follow-up appointment within 2 weeks. All questions answered, the patient verbalized understanding Orders: Orders US OB pelvic and transvaginal 08/03/24 Z34.90 - Encounter for supervision of normal , unspecified, unspecified trimester Coding Level of Care Code Est Pt Level 3 (96514) Diagnoses Early stage of Z34.90
== END 2024-07-21 12:16 | disposition home or self-care (01) ==
LOC: HO.HWS 11:48
PROVIDERS: PCP Physician Assistant Medical; Visit Provider Obstetrics & Gynecology
DX: Z34.90 Encounter for supervision of normal pregnancy, unspecified, unspecified trimester (principal)
CPT/HCPCS: 99213

== ENCOUNTER 2024-08-03 10:17 | Outpatient (REF) | payer OTHER, SELFPAY ==
--- NOTE | ~2024-08-03 | US_ITS ---
EXAMINATION: US FIRST TRIMESTER OB HISTORY: Z34.90 - Encounter for supervision of normal , unspecified TECHNIQUE: Endovaginal scanning was performed. COMPARISON: Comparison is made with the prior examination dated 07/21/2024. FINDINGS: There is a single, live intrauterine . AUA = 6 weeks 4 days EDEL(AUA) = 03/25/2025 LMP = 06/14/2024 GA(LMP) = 7 weeks 1 days EDEL(LMP) = 03/21/2025 CRL = 0.58 cm Yolk Sac: seen FHR = 150 bpm Right ovary: The right ovary measures 1.9 x 1.3 x 1.2 cm and is unremarkable. Left ovary: The left ovary measures 3.4 x 2.2 x 1.9 cm and demonstrates a 1.2 x 0.8 x 1.2 cm cyst and a 1.4 x 1.5 x 0.9 cm hypoechoic structure which likely represents the corpus luteum. Cul-de-sac: No free fluid US/US OB pelvic and transvaginal IMPRESSION: Single, live intrauterine of estimated gestational age 6 weeks, 4 days. Electronically signed by: Khadar Arthur MD 08/03/2024 11:56 AM EDT
--- OUTSIDE RECORDS SUMMARY | 2024-08-03 11:26 | XMS_ITS | Clinical Summary ---
Author Organization [facility] Address [address] [place] [address] Care Team Providers Care Process Inspector Name Role Phone Unavailable Primary Care Provider [...] 5 season) 2023 08/08/2020, 07/18/2020 Influenza Vaccine (Season Ended) 2024 Pneumococcal Vaccine Aged Out No long er eligible based on patient's age to complete this topic RSV Ped < 20 months Aged Out No longe r eligible based on patient's age to complete this topic
== END 2024-08-03 10:18 | disposition home or self-care (01) ==
LOC: HO.US 10:17
PROVIDERS: PCP Physician Assistant Medical; Visit Provider Obstetrics & Gynecology
DX: Z34.90 Encounter for supervision of normal pregnancy, unspecified, unspecified trimester (principal)
CPT/HCPCS: 76801; 76817; 99212

== ENCOUNTER → 2024-08-03 10:18 | Outpatient (BNV) | payer OTHER, SELFPAY | PROVIDERS: PCP Physician Assistant Medical; Visit Provider Radiology Diagnostic Radiology | DX: Z3A.01 Less than 8 weeks gestation of pregnancy (principal) | CPT/HCPCS: 76801; 76817 ==

== ENCOUNTER 2024-08-03 12:52 | Outpatient (AMB) | payer OTHER, SELFPAY ==
[2024-08-03 13:12] VITALS: BP 108/62; BMI 29.9
--- NOTE | 2024-08-03 13:12 | A.OFFVIS_ITS ---
Vital Signs 08/03/24 13:12 Height 5 ft 4 in Weight 174 lb BMI 29.9 BP 108/62 Intake Visit Reasons: Ultrasound follow up Allergies shellfish derived [SHELLFISH DERIVED] Allergy (Intermediate, Verified 07/21/24 11:54) ANAPHYLAXIS Sulfa (Sulfonamide Antibiotics) [SULFA (SULFONAMIDE ANTIBIOTICS)] Allergy (Unknown, Verified 07/21/24 11:54) HIVES HPI Comments Details: Presenting for ultrasound follow-up doing well with no complaints no pelvic cramping or bleeding. On vitamin 1 tablet p.o. q.d.. Ultrasound done today showed the following There is a single, live intrauterine . AUA = 6 weeks 4 days EDEL(AUA) = 03/25/2025 LMP = 06/14/2024 GA(LMP) = 7 weeks 1 days EDEL(LMP) = 03/21/2025 CRL = 0.58 cm Yolk Sac: seen FHR = 150 bpm Right ovary: The right ovary measures 1.9 x 1.3 x 1.2 cm and is unremarkable. Left ovary: The left ovary measures 3.4 x 2.2 x 1.9 cm and demonstrates a 1.2 x 0.8 x 1.2 cm cyst and a 1.4 x 1.5 x 0.9 cm hypoechoic structure which likely represents the corpus luteum. 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 Sexual orientation: Straight/Heterosexual Gender identity: Female Female Reproductive History Menstrual Age of Menarche: 13 Review of Systems Const All systems reviewed & are unremarkable except as noted in HPI and below Reports as per HPI and Reports no additional complaints GI Reports no additional complaints Reports no additional complaints Physical Exam Vital Signs: Last Vital Signs BP 108/62 08/03/24 13:12 BMI result Body Mass Index 29.9 Assessment & Plan Assessment & Plan (1) Early stage of : Code(s): Z34.90 - Encounter for supervision of normal , unspecified, unspecified trimester Category: Medical Plan: Discussed with the patient the results the ultrasound. SAB warnings given the patient, she is to call or go to emergency room in case of pelvic cramping and or bleeding. vitamin 1 tablet p.o. q.d. Coding Level of Care Code Est Pt Level 3 (82107) Diagnoses Early stage of Z34.90
== END 2024-08-03 13:34 | disposition home or self-care (01) ==
LOC: HO.HWS 12:52
PROVIDERS: PCP Physician Assistant Medical; Visit Provider Obstetrics & Gynecology
DX: Z34.90 Encounter for supervision of normal pregnancy, unspecified, unspecified trimester (principal)
CPT/HCPCS: 99213

== ENCOUNTER 2024-09-08 13:58 | Outpatient (REF) | payer OTHER, SELFPAY ==
--- NOTE | ~2024-09-08 | US_ITS ---
EXAMINATION: US OBSTETRICAL ULTRASOUND CLINICAL INFORMATION: Beta-hCG has decreased since July 21, 2024, vaginal spotting of blood COMPARISON: 08/03/2024 LMP: 06/14/2024. Gestational age by maternal dates is 12 weeks 2 days. Estimated date of delivery by maternal dates is 12 weeks 2 days. TECHNIQUE: Transabdominal and transvaginal ultrasound was performed using grayscale FINDINGS: There is an intrauterine gestational sac measuring 2.9x3.1 x 3.3 cm. Yolk sac and fetus that were present on the prior examination are no longer demonstrated. Sac size correlates with 8 weeks 0 days. MATERNAL ADNEXA: The right maternal ovary measures 2.5 x 1.9 x 1.8 cm. The left maternal ovary measures 2.9 x 1.8 x 1.8 cm. There is no significant maternal adnexal mass. No maternal pelvic ascites. US/US OB pelvic and transvaginal IMPRESSION: Spontaneous with retained gestational sac that is small for dates. Previously demonstrated fetus is no longer present. Electronically signed by: Ryan Kearney MD 09/08/2024 03:43 PM EDT
--- OUTSIDE RECORDS SUMMARY | 2024-09-08 15:16 | XMS_ITS | Clinical Summary ---
Author Organization [facility] Address [address] [place] [address] Care Team Providers Care Bus System Operator Name Role Phone Unavailable Primary Care Provider [...] 78 05/16/2021 12:32 PM EDT Temperature 36.3 C (97.3 F) 05/16/2021 12:32 PM EDT Respiratory Rate 14 05/16/2021 12:32 PM EDT [...] Cancer Screening (Pap Smear) 2006 COVID-19 Vaccine (3 2023-2 5 season) 2023 08/08/2020, 07/18/2020 Influenza Vaccine (#1) 2024 Pneumococcal Vaccine Aged Out No long er eligible based on patient's age to complete this topic RSV Ped < 20 months Aged Out No longe r eligible based on patient's age to complete this topic
--- OUTSIDE RECORDS SUMMARY | 2024-09-08 15:16 | XMS_ITS | Clinical Summary ---
Author Organization [facility] it Address [address] [place] [address] Care Team Providers Care Gardener Florist Name Role Phone Brain Goodman MD Primary Care Provider [phone] Surgical History Surgery Date Site/Laterality Comments APPENDECTOMY PROCEDURE: HISTORICAL APPENDECTOMY APPENDECTOMY 1994 PROCEDURE: [place] APPENDECTOMY; COMMENT: [place] Medical History Medical History Date Comments PTSD (post-traumatic stress disorder) DX:PTSD (post-traumatic stress disorder) Family History Medical History Relation Name Comments Arthritis Mother Hypertension Mother Stroke Mother Breast cancer Neg Hx Colon cancer Neg Hx Ovarian cancer Neg Hx Prostate cancer Neg Hx Relation Name Status Comments Brother Alive healthy Father Alive healthy Maternal Grandfather polycys tic kidney disease Maternal Grandmother DM Mother Alive htn Paternal Grandfather Alive Paternal Grandmother Sister 1 Alive healthy Sister 2 Alive healthy Son 1 Alive healthy Son 2 Alive healthy Social History Tobacco Use Types Packs/Day Years Used Date Smoking Tobacco: Never Smokeless Tobacco: Never Alcohol Use Standard Drinks/Week Comments No 0 (1 standard drink = 0.6 oz pur e alcohol) Comments Unknown Sex and Gender Information Value Date Recorded Sex Assigned at Not on file Legal Sex Female 6:04 PM EST Gender Identity Not on file Sexual Orientation Not on file Obstetrics History Last Filed Vital Signs Vital Sign Reading Time Taken Comments Blood Pressure 110/70 05/16/2021 12:32 PM EDT Pulse 78 05/16/2021 12:32 PM EDT Temperature - - Respiratory Rate - - Oxygen Saturation - - Inhaled Oxygen Concentration - - Weight 80.3 kg (177 lb) 05/16/2021 12:32 PM EDT Height - - Body Mass Index - - Plan of Treatment Health Maintenance Due Date Last Done Comments DTaP,Tdap,and Td Vaccines (1 - Tdap) 2004 Hepatitis B Vaccines (1 of 3 - 19+ 3-dose series) 2004 Cervical Cancer Screening: P ap Smear 2006 Depression Screening 01/27/2022 HIV Screening 01/27/2022 Hepatitis C Screening 01/27/2022 Social Influencers of Health Screening 01/27/2022 COVID-19 Vaccine (1 - 2023-2 5 season) 2023 Influenza Vaccine (#1) 2024 HIB Vaccines Aged Out No longer eligi ble based on patient's age to complete this topic HPV Vaccines Aged Out No longer eligi ble based on patient's age to complete this topic Hepatitis A Vaccines Aged Out No long er eligible based on patient's age to complete this topic IPV Vaccines Aged Out No longer eligi ble based on patient's age to complete this topic MMR Vaccines Aged Out No longer eligi ble based on patient's age to complete this topic Meningococcal ACWY Vaccine Aged Out N o longer eligible based on patient's age to complete this topic Meningococcal B Vaccine Aged Out No l onger eligible based on patient's age to complete this topic Pneumococcal Vaccine: Pediat rics (0 to 5 Years) and At-Risk Patients (6 to 49 Years) Aged Out No longer eligible b ased on patient's age to complete this topic RSV Immunization Patients Un fabiana 20 months Aged Out No longer eligible b ased on patient's age to complete this topic Varicella Vaccines Aged Out No longer eligible based on patient's age to complete this topic Care Teams Gardener Florist Relationship Specialty Start Date End Date Brain Goodman MD [address] [place] [phone] PCP - General Internal Medicine 06/23/18
== END 2024-09-08 13:59 | disposition home or self-care (01) ==
LOC: HO.US 13:58
PROVIDERS: PCP Physician Assistant Medical; Visit Provider Obstetrics & Gynecology
DX: O03.4 Incomplete spontaneous abortion without complication (principal)
CPT/HCPCS: 36415; 76801; 76817; 84702; 99212

== ENCOUNTER → 2024-09-08 14:16 | Outpatient (BNV) | payer OTHER, SELFPAY | PROVIDERS: PCP Physician Assistant Medical; Visit Provider Radiology Diagnostic Radiology | DX: O03.9 Complete or unspecified spontaneous abortion without complication (principal) | CPT/HCPCS: 76801; 76817 ==

== ENCOUNTER 2024-12-17 14:34 | Outpatient (AMB) | payer OTHER, SELFPAY ==
--- NOTE | 2024-12-17 14:52 | MHC.OFFVIS ---
Vital Signs 12/17/24 14:58 Height 5 ft 4 in Weight 174 lb BMI 29.9 Intake Visit Reasons: vaginal discharge Concrete Placement Equipment Operator Required: No Information Interpreted: non-clinical & clinical Health Center Manager: Health Center Manager Present (Sneha CROOKS) Accompanied by: Self / Same As Patient Allergies shellfish derived (SHELLFISH DERIVED) Allergy (Intermediate, Verified 12/17/24 14:58) ANAPHYLAXIS Sulfa (Sulfonamide Antibiotics) (SULFA (SULFONAMIDE ANTIBIOTICS)) Allergy (Unknown, Verified 12/17/24 14:58) HIVES HPI Comments Details: The patient is presenting complaining of vaginal discharge associated with foul odor, no other associated symptoms, vaginal itching or any other complaint PFSH Medical History Well woman exam with routine gynecological exam Hypothyroid Surgical History Hx of appendectomy Family History Paternal Grandmother Cancer Social History Household Members: Significant Other Housing: House Alcohol intake: current Patient Tobacco Use Status: Never used Tobacco 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 Sexual orientation: Straight/Heterosexual Gender identity: Female Female Reproductive History Menstrual Age of Menarche: 13 Review of Systems Const All systems reviewed & are unremarkable except as noted in HPI and below Physical Exam General: Yes no CVA tenderness External Female Exam: normal external appearance and normal appearance of the urethra Speculum Exam - Vagina: normal appearance of the vagina, normal palpation, no lesions and no masses Speculum Exam - Cervix: normal appearance of the cervix, normal palpation, no lesions, no masses and nontender Bimanual exam- vagina & uterus: normal bimanual exam, normal palpation, uterine size normal, normal palpation, uterine shape normal, No Cervical tenderness present and non-tender Bimanual Exam- Adnexa, other: normal adnexae Back/Spine/Pelvis Back: no CVA tenderness Assessment & Plan Assessment & Plan (1) Bacterial vaginosis: Code(s): N76.0 - Acute vaginitis; B96.89 - Other specified bacterial agents as the cause of diseases classified elsewhere Category: Medical Plan: GC and chlamydia cultures with BV panel taken. Per CDC recommendation, will screen for STI, HepBs Ag, HIV, RPR, Hep C Ab ordered. Will treat with Flagyl 500 mg p.o. b.i.d. x 7 days, Instructions given to the patient to refrain from sexual activity or to use condoms consistently and correctly during the BV treatment regimen, not to douch, it might increase the risk for relapse, and to call if symptoms persist or recur. Orders: Orders Syphilis Screen Today B96.89 - Other specified bacterial agents as the cause of diseases classified elsewhere, N76.0 - Acute vaginitis HIV Ab/Ag Today B96.89 - Other specified bacterial agents as the cause of diseases classified elsewhere, N76.0 - Acute vaginitis Hepatitis C Antibody Today B96.89 - Other specified bacterial agents as the cause of diseases classified elsewhere, N76.0 - Acute vaginitis Hepatitis B Surface Antigen Today B96.89 - Other specified bacterial agents as the cause of diseases classified elsewhere, N76.0 - Acute vaginitis Medications: New metronidazole 500 mg PO BID 14 tabs 0RF 7 days Coding Level of Care Code Est Pt Level 3 (41666) Diagnoses Bacterial vaginosis N76.0; B96.89
[2024-12-17 14:58] VITALS: BMI 29.9
--- OUTSIDE RECORDS SUMMARY | 2024-12-17 18:26 | XMS_ITS | Clinical Summary ---
Author Organization [facility] Address [address] [place] [address] Care Team Providers Care Log Rider Name Role Phone Unavailable Primary Care Provider [...] Screening (Pap Smear) 2006 COVID-19 Vaccine (3 - 2024-2 6 season) 2024 08/08/2020, 07/18/2020 Influenza Vaccine (#1) 2024 Pneumococcal Vaccine Aged Out No long er eligible based on patient's age to complete this topic RSV Ped < 20 months Aged Out No longe r eligible based on patient's age to complete this topic
--- OUTSIDE RECORDS SUMMARY | 2024-12-17 18:26 | XMS_ITS | Clinical Summary ---
Author Organization [facility] it Address [address] [place] [address] Care Team Providers Care It Analyst Name Role Phone Brain Goodman MD Primary Care Provider [phone] Surgical History Surgery Date Site/Laterality Comments APPENDECTOMY PROCEDURE: HISTORICAL APPENDECTOMY APPENDECTOMY 1994 PROCEDURE: [place] APPENDECTOMY; COMMENT: [place] Medical History Medical History Date Comments PTSD [...] Cervical Cancer Screening: P ap Smear 2006 HPV Vaccines (1 - 3-dose SCD M series) 2012 HIV Screening 01/27/2022 Hepatitis C Screening 01/27/2022 Social Influencers of Health Screening 01/27/2022 Depression Screening 02/26/2024 COVID-19 Vaccine (1 - 2023-2 5 season) 2024 Influenza Vaccine (#1) 2024 RSV Immunization Adult Patie nts (1 - 1-dose 75+ series) 2060 HIB Vaccines Aged Out No longer eligi [...] age to complete this topic Care Teams It Analyst Relationship Specialty Start Date End Date Brain Goodman MD [address] [place] [phone] PCP - General Internal Medicine 06/23/18
== END 2024-12-17 15:11 | disposition home or self-care (01) ==
LOC: HO.HWS 14:35
PROVIDERS: PCP Physician Assistant Medical; Visit Provider Obstetrics & Gynecology
DX: N76.0 Acute vaginitis (principal); B96.89 Other specified bacterial agents as the cause of diseases classified elsewhere
CPT/HCPCS: 99213

== ENCOUNTER 2024-12-17 14:34 | Outpatient (REF) | payer OTHER, SELFPAY ==
[2024-12-17 17:14] LABS: Bacterial Vaginosis PCR NEGATIVE (Negative); Candida Group PCR NOT DETECTED (Not Detect); Candida glab krusei PCR NOT DETECTED (Not Detect); Trichomonas vaginalis PCR NOT DETECTED (Not Detect)
[2024-12-17 17:46] LABS: CT PCR NOT DETECTED (Not Detect.); NG PCR NOT DETECTED (Not Detect.)
== END 2024-12-17 14:35 | disposition home or self-care (01) ==
LOC: HO.LNP 14:34
PROVIDERS: PCP Physician Assistant Medical; Visit Provider Obstetrics & Gynecology
DX: N76.0 Acute vaginitis (principal); B96.89 Other specified bacterial agents as the cause of diseases classified elsewhere; Z20.2 Contact with and (suspected) exposure to infections with a predominantly sexual mode of transmission
CPT/HCPCS: 81515; 87491; 87591; 99212